=== PATIENT | female | born 1960 | race Caucasian/White ===

== ENCOUNTER 2018-07-06 19:11 | Inpatient (IN) | payer OTHER ==
[~2018-07-06] VITALS: Ht 165.1 cm; Wt 55.2 kg
[2018-07-06] MEDS ORDERED: PREMARIN 0.60.625 M1 PO (19:36)
[2018-07-06] MEDS ORDERED: SYNTHROID0.05 MG/TA PO (19:37)
[2018-07-06 20:10] LABS: BASO # 0.1 (0.0-0.2); BASO % 0.6 % (0.0-2.0); EOS # 0.1 (0.0-0.7); EOS % 0.4 % (0-4.0); GRAN # 10.3 (1.4-6.5); GRAN % 76.8 % (42.2-75.2); HEMATOCRIT 49.9 % (37.0-47.0); HEMOGLOBIN 16.9 g/dl (12.5-16.0); LYMPH # 1.9 (1.2-3.4); MEAN CELL VOLUME 94 fl (80.0-100.0); MEAN CORPUSCULAR HEMOGLOBIN 32 pg (27.0-31.0); MEAN CORPUSCULAR HGB CONC 34 g/dl (33.0-37.0); MEAN PLATELET VOLUME 8.8 fl (7.4-10.4); MONO % 7.1 % (1.7-9.3); PLATELET COUNT 679 K/mm3 (130-400); RED BLOOD COUNT 5.32 M/mm3 (4.10-5.30); REDCELL DISTRIBUTION WIDTH-CV 12.4 % (11.5-14.5)
[2018-07-06 20:21] LABS: ALBUMIN 4.4 gm/dL (3.5-5.0); BILIRUBIN,TOTAL 0.7 mg/dL (0.0-1.0); C-REACTIVE PROTEIN 0.8 mg/dL (0.0-0.9); CALCIUM 10.8 mg/dL (8.4-10.2); CREATININE, serum 0.61 mg/dL (0.52-1.25); MAGNESIUM 1.7 mg/dL (1.6-2.3); POTASSIUM 3.6 mmol/L (3.4-5.0)
[2018-07-06 22:26] VITALS: BP 114/73; PULSE 67
[2018-07-06] MEDS ORDERED: TUMS SMOOTHIES750 M1 PO (22:44)
[2018-07-06 23:55] VITALS: TEMP 97.4
[2018-07-07] VITALS (7 sets, daily range): BP systolic 92–137; BP diastolic 58–72; PULSE 60–75; TEMP 97.7–98.4
[2018-07-07 06:08] LABS: BASO # 0.1 (0.0-0.2); BASO % 0.6 % (0.0-2.0); EOS # 0.1 (0.0-0.7); EOS % 1.1 % (0-4.0); GRAN # 8.3 (1.4-6.5); GRAN % 69.8 % (42.2-75.2); LYMPH # 2.3 (1.2-3.4); LYMPH % 19.1 % (20.0-51.0); MEAN CELL VOLUME 93 fl (80.0-100.0); MEAN CORPUSCULAR HGB CONC 34 g/dl (33.0-37.0); MEAN PLATELET VOLUME 9.2 fl (7.4-10.4); MONO % 8.6 % (1.7-9.3); RED BLOOD COUNT 4.18 M/mm3 (4.10-5.30); REDCELL DISTRIBUTION WIDTH-CV 12.4 % (11.5-14.5)
[2018-07-07 06:17] LABS: CALCIUM 8.2 mg/dL (8.4-10.2); CREATININE, serum 0.52 mg/dL (0.52-1.25); POTASSIUM 4.4 mmol/L (3.4-5.0)
[2018-07-07 06:30] LABS: HEMOGLOBIN 13.2 g/dl (12.5-16.0); MEAN CORPUSCULAR HEMOGLOBIN 32 pg (27.0-31.0); PLATELET COUNT 512 K/mm3 (130-400)
[2018-07-07 08:55] LABS: MUCOUS Present /lpf; PH 5 (5-8); URINE APPEARANCE Clear; URINE BACTERIA None Seen /hpf; URINE BILIRUBIN Negative (NEGATIVE); URINE BLOOD 1+ (NEGATIVE); URINE COLOR Yellow; URINE GLUCOSE Negative (NEGATIVE); URINE KETONE 1+ (NEGATIVE); URINE LEUKOCYTE ESTERASE 1+ (NEGATIVE); URINE NITRATE Negative (NEGATIVE); URINE PROTEIN(semi-quant) Negative (NEGATIVE); URINE UROBILINOGEN Negative (NEGATIVE)
[2018-07-07 08:58] LABS: COLLECTION METHOD RANDOM VOIDED
[2018-07-08 04:22] VITALS: BP 102/56; PULSE 80; TEMP 98.6
[2018-07-08 07:13] VITALS: BP 117/66; PULSE 61; TEMP 98.5
[2018-07-08 07:27] LABS: BASO # 0.1 (0.0-0.2); BASO % 0.3 % (0.0-2.0); EOS # 0.1 (0.0-0.7); GRAN # 11.5 (1.4-6.5); GRAN % 78.8 % (42.2-75.2); HEMATOCRIT 38.2 % (37.0-47.0); HEMOGLOBIN 12.8 g/dl (12.5-16.0); LYMPH % 13.6 % (20.0-51.0); MEAN CELL VOLUME 94 fl (80.0-100.0); MEAN CORPUSCULAR HEMOGLOBIN 31 pg (27.0-31.0); MEAN CORPUSCULAR HGB CONC 34 g/dl (33.0-37.0); MEAN PLATELET VOLUME 9.4 fl (7.4-10.4); MONO # 0.8 (0.1-0.6); MONO % 5.7 % (1.7-9.3); PLATELET COUNT 481 K/mm3 (130-400); RED BLOOD COUNT 4.07 M/mm3 (4.10-5.30); REDCELL DISTRIBUTION WIDTH-CV 12.4 % (11.5-14.5)
[2018-07-08 07:39] LABS: ANION GAP 10 mmol/L (7-16); BLOOD UREA NITROGEN < 2 mg/dL (7-17); CALCIUM 7.4 mg/dL (8.4-10.2); CARBON DIOXIDE 17 mmol/L (22-30); CHLORIDE 112 mmol/L (98-107); CREATININE, serum 0.47 mg/dL (0.52-1.25); GLUCOSE 97 mg/dL (74-106); MAGNESIUM 1.7 mg/dL (1.6-2.3); POTASSIUM 3.2 mmol/L (3.4-5.0); SODIUM 139 mmol/L (137-145)
[2018-07-08 13:50] VITALS: BP 102/62; PULSE 68; TEMP 98.2
[2018-07-08 15:16] VITALS: BP 103/66; PULSE 61; TEMP 97.8
[2018-07-08 21:00] VITALS: BP 110/75; PULSE 67; TEMP 97.9
[2018-07-09] VITALS (12 sets, daily range): BP systolic 96–128; BP diastolic 61–76; PULSE 12–80; TEMP 97.8–98.3
[2018-07-09 06:58] LABS: ANION GAP 5 mmol/L (7-16); CALCIUM 7.6 mg/dL (8.4-10.2); CARBON DIOXIDE 21 mmol/L (22-30); CHLORIDE 110 mmol/L (98-107); CREATININE, serum 0.48 mg/dL (0.52-1.25); GLUCOSE 84 mg/dL (74-106); MAGNESIUM 1.8 mg/dL (1.6-2.3); POTASSIUM 3.5 mmol/L (3.4-5.0); SODIUM 136 mmol/L (137-145)
[2018-07-09 07:00] LABS: BLOOD UREA NITROGEN < 2 mg/dL (7-17)
[2018-07-09 09:50] LABS: BASO # 0.1 (0.0-0.2); BASO % 0.5 % (0.0-2.0); EOS # 0.2 (0.0-0.7); EOS % 1.9 % (0-4.0); GRAN # 9.6 (1.4-6.5); GRAN % 75.3 % (42.2-75.2); HEMOGLOBIN 12.2 g/dl (12.5-16.0); LYMPH # 1.8 (1.2-3.4); LYMPH % 14.2 % (20.0-51.0); MEAN CELL VOLUME 96 fl (80.0-100.0); MEAN CORPUSCULAR HEMOGLOBIN 32 pg (27.0-31.0); MEAN CORPUSCULAR HGB CONC 33 g/dl (33.0-37.0); MEAN PLATELET VOLUME 9.7 fl (7.4-10.4); MONO % 7.7 % (1.7-9.3); PLATELET COUNT 509 K/mm3 (130-400); RED BLOOD COUNT 3.83 M/mm3 (4.10-5.30); REDCELL DISTRIBUTION WIDTH-CV 12.5 % (11.5-14.5)
[2018-07-09 09:52] LABS: HEMATOCRIT 36.6 % (37.0-47.0)
[2018-07-10] VITALS (9 sets, daily range): BP systolic 95–105; BP diastolic 60–65; PULSE 79–90; TEMP 97.9–98.9
[2018-07-10 06:36] LABS: HEMATOCRIT 37.4 % (37.0-47.0); HEMOGLOBIN 12.6 g/dl (12.5-16.0); MEAN CELL VOLUME 94 fl (80.0-100.0); MEAN CORPUSCULAR HEMOGLOBIN 32 pg (27.0-31.0); MEAN CORPUSCULAR HGB CONC 34 g/dl (33.0-37.0); MEAN PLATELET VOLUME 9.7 fl (7.4-10.4); PLATELET COUNT 441 K/mm3 (130-400); RED BLOOD COUNT 3.99 M/mm3 (4.10-5.30); REDCELL DISTRIBUTION WIDTH-CV 12.4 % (11.5-14.5)
[2018-07-10 06:43] LABS: CALCIUM 7.9 mg/dL (8.4-10.2); CREATININE, serum 0.54 mg/dL (0.52-1.25); MAGNESIUM 1.6 mg/dL (1.6-2.3); POTASSIUM 3.4 mmol/L (3.4-5.0)
[2018-07-10 08:12] LABS: BAND 37 % (0-10); LYMPHOCYTE 3 % (20.0-51.0); NEUTROPHILS 58 % (42.0-75.2); PLATELET ESTIMATE INCREASED (NORMAL)
[2018-07-11] VITALS (11 sets, daily range): BP systolic 90–108; BP diastolic 55–69; PULSE 72–95; TEMP 97.6–98.6
[2018-07-11 06:17] LABS: BASO # 0.1 (0.0-0.2); BASO % 0.3 % (0.0-2.0); EOS # 0.1 (0.0-0.7); EOS % 0.4 % (0-4.0); GRAN % 86.4 % (42.2-75.2); HEMATOCRIT 38.3 % (37.0-47.0); HEMOGLOBIN 13.1 g/dl (12.5-16.0); LYMPH # 1.2 (1.2-3.4); LYMPH % 5.9 % (20.0-51.0); MEAN CELL VOLUME 95 fl (80.0-100.0); MEAN CORPUSCULAR HEMOGLOBIN 33 pg (27.0-31.0); MEAN CORPUSCULAR HGB CONC 34 g/dl (33.0-37.0); MEAN PLATELET VOLUME 9.7 fl (7.4-10.4); MONO # 1.4 (0.1-0.6); MONO % 6.5 % (1.7-9.3); PLATELET COUNT 489 K/mm3 (130-400); RED BLOOD COUNT 4.03 M/mm3 (4.10-5.30); REDCELL DISTRIBUTION WIDTH-CV 12.7 % (11.5-14.5)
[2018-07-11 06:34] LABS: CALCIUM 7.7 mg/dL (8.4-10.2); CREATININE, serum 1.07 mg/dL (0.52-1.25); MAGNESIUM 2.3 mg/dL (1.6-2.3); POTASSIUM 4.1 mmol/L (3.4-5.0)
[2018-07-11 23:30] LABS: CREATININE, serum 0.89 mg/dL (0.52-1.25); SODIUM 130 mmol/L (137-145)
[2018-07-12 00:17] VITALS: BP 99/52; PULSE 88; TEMP 98.2
[2018-07-12 00:18] VITALS: BP 99/52; PULSE 88
[2018-07-12 03:58] VITALS: BP 90/50; PULSE 86; TEMP 99.1
[2018-07-12 07:47] LABS: MEAN CELL VOLUME 96 fl (80.0-100.0); MEAN CORPUSCULAR HGB CONC 32 g/dl (33.0-37.0); MEAN PLATELET VOLUME 9.3 fl (7.4-10.4); REDCELL DISTRIBUTION WIDTH-CV 12.9 % (11.5-14.5)
[2018-07-12 07:48] LABS: HEMATOCRIT 28.8 % (37.0-47.0); HEMOGLOBIN 9.3 g/dl (12.5-16.0); MEAN CORPUSCULAR HEMOGLOBIN 31 pg (27.0-31.0); PLATELET COUNT 319 K/mm3 (130-400)
[2018-07-12 07:55] LABS: ALBUMIN 1.8 gm/dL (3.5-5.0); BILIRUBIN,TOTAL 0.2 mg/dL (0.0-1.0); CALCIUM 6.1 mg/dL (8.4-10.2); CREATININE, serum 0.91 mg/dL (0.52-1.25); MAGNESIUM 1.9 mg/dL (1.6-2.3); TOTAL PROTEIN 4.1 gm/dL (6.4-8.2)
[2018-07-12 08:00] VITALS: BP 90/58; PULSE 85
[2018-07-12 08:46] VITALS: BP 90/58; PULSE 85; TEMP 98.4
[2018-07-12 10:50] LABS: PLATELET ESTIMATE NORMAL (NORMAL)
[2018-07-12 11:03] LABS: BAND 12 % (0-10); LYMPHOCYTE 3 % (20.0-51.0); NEUTROPHILS 81 % (42.0-75.2)
[2018-07-12 12:21] VITALS: BP 91/60; PULSE 80; TEMP 98.4
[2018-07-13] VITALS (7 sets, daily range): BP systolic 93–101; BP diastolic 48–67; PULSE 64–84; TEMP 98.1–98.5
[2018-07-13 07:22] LABS: BASO % 0.3 % (0.0-2.0); EOS # 0.3 (0.0-0.7); GRAN # 10.3 (1.4-6.5); GRAN % 77.2 % (42.2-75.2); LYMPH # 1.2 (1.2-3.4); LYMPH % 8.9 % (20.0-51.0); MEAN CELL VOLUME 99 fl (80.0-100.0); MEAN CORPUSCULAR HGB CONC 32 g/dl (33.0-37.0); MEAN PLATELET VOLUME 9.7 fl (7.4-10.4); MONO # 1.5 (0.1-0.6); MONO % 11.1 % (1.7-9.3); PLATELET COUNT 326 K/mm3 (130-400); RED BLOOD COUNT 2.83 M/mm3 (4.10-5.30); REDCELL DISTRIBUTION WIDTH-CV 13.1 % (11.5-14.5)
[2018-07-13 07:33] LABS: HEMOGLOBIN 8.9 g/dl (12.5-16.0); MEAN CORPUSCULAR HEMOGLOBIN 31 pg (27.0-31.0)
[2018-07-13 07:36] LABS: CALCIUM 6.2 mg/dL (8.4-10.2); CREATININE, serum 0.81 mg/dL (0.52-1.25); MAGNESIUM 1.9 mg/dL (1.6-2.3); POTASSIUM 3.4 mmol/L (3.4-5.0)
[2018-07-14] VITALS (7 sets, daily range): BP systolic 99–109; BP diastolic 60–75; PULSE 68–85; TEMP 97.9–98.6
[2018-07-14 06:16] LABS: BASO % 0.3 % (0.0-2.0); EOS # 0.2 (0.0-0.7); EOS % 1.8 % (0-4.0); GRAN # 10.6 (1.4-6.5); GRAN % 77.6 % (42.2-75.2); HEMOGLOBIN 10.7 g/dl (12.5-16.0); LYMPH # 1.1 (1.2-3.4); LYMPH % 8.2 % (20.0-51.0); MEAN CELL VOLUME 97 fl (80.0-100.0); MEAN CORPUSCULAR HEMOGLOBIN 32 pg (27.0-31.0); MEAN CORPUSCULAR HGB CONC 33 g/dl (33.0-37.0); MEAN PLATELET VOLUME 9.7 fl (7.4-10.4); MONO # 1.6 (0.1-0.6); MONO % 11.4 % (1.7-9.3); PLATELET COUNT 383 K/mm3 (130-400); RED BLOOD COUNT 3.38 M/mm3 (4.10-5.30); REDCELL DISTRIBUTION WIDTH-CV 13.1 % (11.5-14.5)
[2018-07-14 06:21] LABS: HEMATOCRIT 32.8 % (37.0-47.0)
[2018-07-14 06:26] LABS: CALCIUM 9.3 mg/dL (8.4-10.2); CREATININE, serum 1.14 mg/dL (0.52-1.25); MAGNESIUM 2.4 mg/dL (1.6-2.3); POTASSIUM 4.5 mmol/L (3.4-5.0)
[2018-07-14 14:04] LABS: FOLATE (FOLIC ACID) 5.3 ng/mL (7.0-31.4)
[2018-07-15 05:00] VITALS: BP 97/72; PULSE 74; TEMP 98.2
[2018-07-15 06:22] LABS: BASO % 0.3 % (0.0-2.0); EOS # 0.2 (0.0-0.7); EOS % 1.3 % (0-4.0); GRAN # 10.9 (1.4-6.5); GRAN % 76.7 % (42.2-75.2); HEMOGLOBIN 11.5 g/dl (12.5-16.0); LYMPH # 1.6 (1.2-3.4); MEAN CELL VOLUME 97 fl (80.0-100.0); MEAN CORPUSCULAR HEMOGLOBIN 32 pg (27.0-31.0); MEAN CORPUSCULAR HGB CONC 33 g/dl (33.0-37.0); MEAN PLATELET VOLUME 9.7 fl (7.4-10.4); MONO # 1.4 (0.1-0.6); MONO % 10.1 % (1.7-9.3); PLATELET COUNT 397 K/mm3 (130-400); RED BLOOD COUNT 3.64 M/mm3 (4.10-5.30)
[2018-07-15 06:43] LABS: HEMATOCRIT 35.2 % (37.0-47.0)
[2018-07-15 06:45] LABS: CALCIUM 8.9 mg/dL (8.4-10.2); CREATININE, serum 1.4 mg/dL (0.52-1.25); MAGNESIUM 2.1 mg/dL (1.6-2.3); POTASSIUM 4.5 mmol/L (3.4-5.0)
[2018-07-15 07:52] VITALS: BP 100/69; PULSE 78; TEMP 98.3
[2018-07-15 11:58] VITALS: BP 112/70; PULSE 73; TEMP 98.1
[2018-07-15 15:28] VITALS: BP 108/67; PULSE 74; TEMP 98
[2018-07-15 21:51] VITALS: BP 122/67; PULSE 78; TEMP 98.3
[2018-07-16 00:15] VITALS: BP 101/66; PULSE 78; TEMP 99.2
[2018-07-16 04:50] VITALS: BP 107/66; PULSE 88; TEMP 98.4
[2018-07-16 06:17] LABS: HEMATOCRIT 34.8 % (37.0-47.0); HEMOGLOBIN 11.5 g/dl (12.5-16.0); MEAN CELL VOLUME 95 fl (80.0-100.0); MEAN CORPUSCULAR HEMOGLOBIN 31 pg (27.0-31.0); MEAN CORPUSCULAR HGB CONC 33 g/dl (33.0-37.0); MEAN PLATELET VOLUME 9.8 fl (7.4-10.4); PLATELET COUNT 417 K/mm3 (130-400); RED BLOOD COUNT 3.68 M/mm3 (4.10-5.30); REDCELL DISTRIBUTION WIDTH-CV 12.9 % (11.5-14.5)
[2018-07-16 06:29] LABS: CALCIUM 8.4 mg/dL (8.4-10.2); CREATININE, serum 1.43 mg/dL (0.52-1.25); POTASSIUM 4.1 mmol/L (3.4-5.0)
[2018-07-16 07:06] LABS: BAND 11 % (0-10); EOSINOPHIL 1 % (0-4); LYMPHOCYTE 16 % (20.0-51.0); NEUTROPHILS 65 % (42.0-75.2)
[2018-07-16 07:07] LABS: PLATELET ESTIMATE INCREASED (NORMAL)
[2018-07-16 08:00] VITALS: BP 101/67; PULSE 82; TEMP 98.2
[2018-07-16 11:00] VITALS: BP 98/59; PULSE 83; TEMP 99
[2018-07-16 12:38] LABS: BILIRUBIN,TOTAL 0.4 mg/dL (0.0-1.0); CALCIUM 8.6 mg/dL (8.4-10.2); CREATININE, serum 1.51 mg/dL (0.52-1.25); MAGNESIUM 1.8 mg/dL (1.6-2.3); PHOSPHOROUS 5.5 mg/dL (2.5-4.5); POTASSIUM 4.3 mmol/L (3.4-5.0); TOTAL PROTEIN 6.2 gm/dL (6.4-8.2)
[2018-07-16 16:00] VITALS: BP 99/55; PULSE 76; TEMP 98.4
[2018-07-17 00:36] VITALS: BP 107/68; PULSE 78; TEMP 98.8
[2018-07-17 04:00] VITALS: BP 106/65; PULSE 72; TEMP 98
[2018-07-17 06:30] LABS: CALCIUM 8.3 mg/dL (8.4-10.2); CREATININE, serum 1.34 mg/dL (0.52-1.25); MAGNESIUM 1.7 mg/dL (1.6-2.3); POTASSIUM 3.6 mmol/L (3.4-5.0)
[2018-07-17 07:59] VITALS: BP 108/59; PULSE 68; TEMP 98.4
[2018-07-17 09:50] LABS: HEMOGLOBIN 10.8 g/dl (12.5-16.0); MEAN CELL VOLUME 96 fl (80.0-100.0); MEAN CORPUSCULAR HEMOGLOBIN 31 pg (27.0-31.0); MEAN CORPUSCULAR HGB CONC 33 g/dl (33.0-37.0); PLATELET COUNT 404 K/mm3 (130-400); RED BLOOD COUNT 3.46 M/mm3 (4.10-5.30)
[2018-07-17 09:51] LABS: HEMATOCRIT 33.1 % (37.0-47.0)
[2018-07-17 10:08] LABS: BAND 21 % (0-10); EOSINOPHIL 1 % (0-4); LYMPHOCYTE 7 % (20.0-51.0); NEUTROPHILS 59 % (42.0-75.2); PLATELET ESTIMATE NORMAL (NORMAL)
[2018-07-17 11:42] VITALS: BP 99/63; PULSE 68; TEMP 98.3
[2018-07-17 18:02] VITALS: BP 107/67; PULSE 73; TEMP 98.1
[2018-07-17 20:37] VITALS: BP 118/71; PULSE 75; TEMP 98.3
[2018-07-18 00:04] VITALS: BP 94/43; PULSE 81; TEMP 98.3
[2018-07-18 01:36] LABS: 12 HR URINE TOTAL VOLUME 0.85 L
[2018-07-18 04:48] VITALS: BP 106/62; PULSE 70; TEMP 98.3
[2018-07-18 06:24] LABS: BASO % 0.2 % (0.0-2.0); EOS # 0.1 (0.0-0.7); EOS % 0.9 % (0-4.0); GRAN # 12.1 (1.4-6.5); GRAN % 79.1 % (42.2-75.2); LYMPH # 1.4 (1.2-3.4); LYMPH % 9.2 % (20.0-51.0); MEAN CELL VOLUME 97 fl (80.0-100.0); MEAN CORPUSCULAR HEMOGLOBIN 31 pg (27.0-31.0); MEAN CORPUSCULAR HGB CONC 32 g/dl (33.0-37.0); MEAN PLATELET VOLUME 9.6 fl (7.4-10.4); MONO # 1.4 (0.1-0.6); MONO % 9.2 % (1.7-9.3); PLATELET COUNT 406 K/mm3 (130-400); REDCELL DISTRIBUTION WIDTH-CV 12.8 % (11.5-14.5)
[2018-07-18 06:28] LABS: HEMATOCRIT 33.9 % (37.0-47.0)
[2018-07-18 06:40] LABS: CALCIUM 8.2 mg/dL (8.4-10.2); CREATININE, serum 1.22 mg/dL (0.52-1.25); MAGNESIUM 1.8 mg/dL (1.6-2.3); POTASSIUM 3.5 mmol/L (3.4-5.0)
[2018-07-18 09:39] VITALS: BP 105/66; PULSE 81; TEMP 98.2
[2018-07-18 15:37] VITALS: BP 108/66; PULSE 70; TEMP 98.1
[2018-07-18 20:02] VITALS: BP 104/66; PULSE 71; TEMP 98.6
[2018-07-19 00:41] VITALS: BP 103/68; PULSE 83; TEMP 98.2
[2018-07-19 03:41] VITALS: BP 101/66; PULSE 73; TEMP 98.2
[2018-07-19 07:30] VITALS: BP 108/65; PULSE 67; TEMP 98
[2018-07-19 07:47] LABS: BASO % 0.2 % (0.0-2.0); EOS # 0.2 (0.0-0.7); EOS % 1.3 % (0-4.0); GRAN # 11.9 (1.4-6.5); GRAN % 76.4 % (42.2-75.2); HEMOGLOBIN 10.5 g/dl (12.5-16.0); LYMPH # 1.6 (1.2-3.4); LYMPH % 10.5 % (20.0-51.0); MEAN CELL VOLUME 97 fl (80.0-100.0); MEAN CORPUSCULAR HEMOGLOBIN 31 pg (27.0-31.0); MEAN CORPUSCULAR HGB CONC 32 g/dl (33.0-37.0); MEAN PLATELET VOLUME 9.5 fl (7.4-10.4); MONO # 1.5 (0.1-0.6); MONO % 9.6 % (1.7-9.3); PLATELET COUNT 423 K/mm3 (130-400); RED BLOOD COUNT 3.34 M/mm3 (4.10-5.30); REDCELL DISTRIBUTION WIDTH-CV 12.8 % (11.5-14.5)
[2018-07-19 07:48] LABS: CALCIUM 7.9 mg/dL (8.4-10.2); CREATININE, serum 1.1 mg/dL (0.52-1.25); POTASSIUM 4.3 mmol/L (3.4-5.0)
[2018-07-19 07:53] LABS: HEMATOCRIT 32.4 % (37.0-47.0)
[2018-07-19 13:02] VITALS: BP 97/63; PULSE 93; TEMP 98.1
[2018-07-19 16:55] VITALS: BP 106/62; PULSE 71; TEMP 98.7
[2018-07-19 19:46] VITALS: BP 102/67; PULSE 72; TEMP 98.1
[2018-07-20 00:09] VITALS: BP 109/99; PULSE 76; TEMP 98.5
[2018-07-20 03:25] VITALS: BP 110/71; PULSE 69; TEMP 99.4
[2018-07-20 08:06] LABS: HEMOGLOBIN 10.2 g/dl (12.5-16.0); MEAN CELL VOLUME 96 fl (80.0-100.0); MEAN CORPUSCULAR HEMOGLOBIN 31 pg (27.0-31.0); MEAN CORPUSCULAR HGB CONC 32 g/dl (33.0-37.0); MEAN PLATELET VOLUME 9.5 fl (7.4-10.4); PLATELET COUNT 461 K/mm3 (130-400); RED BLOOD COUNT 3.31 M/mm3 (4.10-5.30); REDCELL DISTRIBUTION WIDTH-CV 12.7 % (11.5-14.5)
[2018-07-20 08:14] LABS: HEMATOCRIT 31.8 % (37.0-47.0)
[2018-07-20 08:16] LABS: CALCIUM 7.9 mg/dL (8.4-10.2); CREATININE, serum 1.08 mg/dL (0.52-1.25); MAGNESIUM 2.1 mg/dL (1.6-2.3); PHOSPHOROUS 3.9 mg/dL (2.5-4.5); POTASSIUM 4.2 mmol/L (3.4-5.0)
[2018-07-20 08:37] VITALS: BP 104/62; PULSE 72; TEMP 98
[2018-07-20 09:01] LABS: BAND 11 % (0-10); EOSINOPHIL 1 % (0-4); HYPOCHROMIA 1+; LYMPHOCYTE 17 % (20.0-51.0); NEUTROPHILS 66 % (42.0-75.2); PLATELET ESTIMATE INCREASED (NORMAL)
[2018-07-20 11:27] VITALS: BP 108/71; PULSE 76; TEMP 98.1
[2018-07-20 16:55] VITALS: BP 109/75; PULSE 75; TEMP 98.1
[2018-07-20 19:35] VITALS: BP 122/77; PULSE 79; TEMP 98.1
[2018-07-21 04:22] VITALS: BP 99/57; PULSE 81; TEMP 99.6
[2018-07-21 06:27] LABS: CALCIUM 8.4 mg/dL (8.4-10.2); CREATININE, serum 1.06 mg/dL (0.52-1.25); MAGNESIUM 2.2 mg/dL (1.6-2.3); PHOSPHOROUS 3.8 mg/dL (2.5-4.5); POTASSIUM 4.5 mmol/L (3.4-5.0)
[2018-07-21 08:32] VITALS: BP 114/73; PULSE 90; TEMP 99.6
[2018-07-21 12:31] VITALS: BP 108/70; PULSE 80; TEMP 98.4
[2018-07-21 16:09] VITALS: BP 113/74; PULSE 74; TEMP 98.8
[2018-07-21 19:21] LABS: 12 HR URINE TOTAL VOLUME 0.95 L
[2018-07-21 19:53] VITALS: BP 117/66; PULSE 84; TEMP 97.8
[2018-07-22] VITALS (7 sets, daily range): BP systolic 99–119; BP diastolic 67–85; PULSE 69–102; TEMP 98.1–99.7
[2018-07-22 06:10] LABS: BASO # 0.1 (0.0-0.2); BASO % 0.4 % (0.0-2.0); EOS # 0.4 (0.0-0.7); GRAN # 15.4 (1.4-6.5); LYMPH # 2.2 (1.2-3.4); MEAN CELL VOLUME 94 fl (80.0-100.0); MEAN CORPUSCULAR HGB CONC 33 g/dl (33.0-37.0); MEAN PLATELET VOLUME 9.6 fl (7.4-10.4); MONO # 1.6 (0.1-0.6); MONO % 7.8 % (1.7-9.3); RED BLOOD COUNT 3.89 M/mm3 (4.10-5.30)
[2018-07-22 06:12] LABS: HEMOGLOBIN 12.2 g/dl (12.5-16.0); MEAN CORPUSCULAR HEMOGLOBIN 31 pg (27.0-31.0)
[2018-07-22 06:13] LABS: HEMATOCRIT 36.5 % (37.0-47.0); PLATELET COUNT 697 K/mm3 (130-400)
[2018-07-22 06:17] LABS: CALCIUM 9.1 mg/dL (8.4-10.2); CREATININE, serum 1.17 mg/dL (0.52-1.25)
[2018-07-22] MEDS ORDERED: FOLIC ACID 11 MG/TA1 PO (10:31)
[2018-07-22] MEDS ORDERED: MASON NATURAL2000 IU PO (10:31)
[2018-07-22] MEDS ORDERED: ROXICODONE 55 MG/TAB PO (10:32)
[2018-07-22] MEDS ORDERED: FENTANYL 12MCG TD (10:32)
[2018-07-23] VITALS (7 sets, daily range): BP systolic 82–110; BP diastolic 53–76; PULSE 91–113; TEMP 97.6–98.5
[2018-07-23 06:43] LABS: HEMATOCRIT 37.7 % (37.0-47.0); HEMOGLOBIN 12.2 g/dl (12.5-16.0); MEAN CELL VOLUME 95 fl (80.0-100.0); MEAN CORPUSCULAR HEMOGLOBIN 31 pg (27.0-31.0); MEAN CORPUSCULAR HGB CONC 32 g/dl (33.0-37.0); MEAN PLATELET VOLUME 9.6 fl (7.4-10.4); RED BLOOD COUNT 3.97 M/mm3 (4.10-5.30); REDCELL DISTRIBUTION WIDTH-CV 12.9 % (11.5-14.5)
[2018-07-23 06:55] LABS: PLATELET COUNT 827 K/mm3 (130-400)
[2018-07-23 06:57] LABS: CALCIUM 9.3 mg/dL (8.4-10.2); CREATININE, serum 1.29 mg/dL (0.52-1.25); MAGNESIUM 2.1 mg/dL (1.6-2.3); PHOSPHOROUS 5.3 mg/dL (2.5-4.5)
[2018-07-23 07:32] LABS: BAND 7 % (0-10); EOSINOPHIL 1 % (0-4); LYMPHOCYTE 16 % (20.0-51.0); NEUTROPHILS 69 % (42.0-75.2); PLATELET ESTIMATE INCREASED (NORMAL); STOMATOCYTE 1+; TOXIC GRANULATION PRESENT
[2018-07-23 12:41] LABS: PH 7 (5-8); SQUAMOUS EPITHELIAL 0-2 /hpf; URINE APPEARANCE Clear; URINE BACTERIA None Seen /hpf; URINE BILIRUBIN Negative (NEGATIVE); URINE BLOOD Negative (NEGATIVE); URINE COLOR Yellow; URINE GLUCOSE Negative (NEGATIVE); URINE KETONE Negative (NEGATIVE); URINE LEUKOCYTE ESTERASE Trace (NEGATIVE); URINE NITRATE Negative (NEGATIVE); URINE PROTEIN(semi-quant) Negative (NEGATIVE); URINE RBC 0-2 /hpf; URINE UROBILINOGEN Negative (NEGATIVE)
[2018-07-23 12:47] LABS: COLLECTION METHOD CLEAN CATCH
[2018-07-24] VITALS (17 sets, daily range): BP systolic 98–135; BP diastolic 57–95; PULSE 83–95; TEMP 97.8–99.2
[2018-07-24 06:38] LABS: MEAN CELL VOLUME 96 fl (80.0-100.0); MEAN CORPUSCULAR HGB CONC 32 g/dl (33.0-37.0); MEAN PLATELET VOLUME 9.6 fl (7.4-10.4); RED BLOOD COUNT 3.18 M/mm3 (4.10-5.30); REDCELL DISTRIBUTION WIDTH-CV 12.8 % (11.5-14.5)
[2018-07-24 06:41] LABS: PROTHROMBIN TIME 11.9 SECONDS (9.7-12.8)
[2018-07-24 06:44] LABS: HEMATOCRIT 30.5 % (37.0-47.0); HEMOGLOBIN 9.8 g/dl (12.5-16.0); MEAN CORPUSCULAR HEMOGLOBIN 31 pg (27.0-31.0)
[2018-07-24 06:45] LABS: PLATELET COUNT 666 K/mm3 (130-400)
[2018-07-24 07:07] LABS: CALCIUM 8.2 mg/dL (8.4-10.2); CREATININE, serum 1.06 mg/dL (0.52-1.25)
[2018-07-24 08:02] LABS: BAND 10 % (0-10); EOSINOPHIL 2 % (0-4); HYPOCHROMIA 1+; LYMPHOCYTE 18 % (20.0-51.0); NEUTROPHILS 62 % (42.0-75.2); PLATELET ESTIMATE INCREASED (NORMAL)
[2018-07-25 00:36] VITALS: BP 109/61; PULSE 87; TEMP 99.1
[2018-07-25 03:59] VITALS: BP 107/67; PULSE 63; TEMP 98.6; TEMP 99.1
[2018-07-25 05:38] LABS: HEMATOCRIT 29.7 % (37.0-47.0); HEMOGLOBIN 9.8 g/dl (12.5-16.0); MEAN CELL VOLUME 95 fl (80.0-100.0); MEAN CORPUSCULAR HEMOGLOBIN 31 pg (27.0-31.0); MEAN CORPUSCULAR HGB CONC 33 g/dl (33.0-37.0); PLATELET COUNT 643 K/mm3 (130-400); RED BLOOD COUNT 3.12 M/mm3 (4.10-5.30); REDCELL DISTRIBUTION WIDTH-CV 12.7 % (11.5-14.5)
[2018-07-25 05:42] LABS: ALBUMIN 3.1 gm/dL (3.5-5.0); BILIRUBIN,TOTAL 0.2 mg/dL (0.0-1.0); CALCIUM 8.6 mg/dL (8.4-10.2); CREATININE, serum 1.08 mg/dL (0.52-1.25); MAGNESIUM 1.8 mg/dL (1.6-2.3); PHOSPHOROUS 3.9 mg/dL (2.5-4.5); TOTAL PROTEIN 6.7 gm/dL (6.4-8.2)
[2018-07-25 06:13] LABS: BAND 2 % (0-10); EOSINOPHIL 3 % (0-4); LYMPHOCYTE 19 % (20.0-51.0); NEUTROPHILS 65 % (42.0-75.2)
[2018-07-25 06:14] LABS: PLATELET ESTIMATE INCREASED (NORMAL)
[2018-07-25 06:15] LABS: HYPOCHROMIA 1+
[2018-07-25 07:50] VITALS: BP 101/73; PULSE 74; TEMP 98
[2018-07-25] MEDS ORDERED: CEPHALEXIN500 M1 PO (10:34)
[2018-07-25 12:00] VITALS: BP 101/58; PULSE 80; TEMP 98
== END 2018-07-25 16:26 | disposition home or self-care (01) | DRG 854 ==
LOC: COL.ER 19:11 → MEDICAL 21:44 → SURG 07-09 15:56
PROVIDERS: Emergency Medicine; Family Medicine; Hospitalist; Internal Medicine; Nurse Practitioner Family; Physician Assistant; Surgery; Urology
PROC: 0DJ08ZZ Inspection of Upper Intestinal Tract, Via Natural or Artificial Opening Endoscopic (ICD-10-PCS; 2018-07-08)
PROC: 0DJD8ZZ Inspection of Lower Intestinal Tract, Via Natural or Artificial Opening Endoscopic (ICD-10-PCS; 2018-07-08)
PROC: 8E0W4CZ Robotic Assisted Procedure of Trunk Region, Percutaneous Endoscopic Approach (ICD-10-PCS; 2018-07-09)
PROC: 0DJD8ZZ Inspection of Lower Intestinal Tract, Via Natural or Artificial Opening Endoscopic (ICD-10-PCS; 2018-07-09)
PROC: 0TJB8ZZ Inspection of Bladder, Via Natural or Artificial Opening Endoscopic (ICD-10-PCS; 2018-07-09)
PROC: 0DTN4ZZ Resection of Sigmoid Colon, Percutaneous Endoscopic Approach (ICD-10-PCS; principal; 2018-07-09 15:30)
PROC: 0D1B4Z4 Bypass Ileum to Cutaneous, Percutaneous Endoscopic Approach (ICD-10-PCS; 2018-07-09 15:30)
PROC: 0W9J30Z Drainage of Pelvic Cavity with Drainage Device, Percutaneous Approach (ICD-10-PCS; 2018-07-24)
DX: A41.9 Sepsis, unspecified organism (principal); K57.20 Diverticulitis of large intestine with perforation and abscess without bleeding; N17.9 Acute kidney failure, unspecified; E44.0 Moderate protein-calorie malnutrition; E87.2 Acidosis; E87.1 Hypo-osmolality and hyponatremia; K56.51 Intestinal adhesions [bands], with partial obstruction; E86.0 Dehydration; E87.6 Hypokalemia; Z85.43 Personal history of malignant neoplasm of ovary; Z85.41 Personal history of malignant neoplasm of cervix uteri; E83.42 Hypomagnesemia; D64.9 Anemia, unspecified; E83.51 Hypocalcemia; T81.82XA Emphysema (subcutaneous) resulting from a procedure, initial encounter
CPT/HCPCS: 99222-AI; 99231-AI; 99232-AI; 99233-AI; 99239; A4314; A9284; C1729; C1751; C1894; C9113; G0378; J0610; J0744; J1100; J1170; J1650; J1885; J2060; J2250; J2270; J2405; J2550; J2704; J2765; J3010; J3411; J3475; J3480; J7030; J7040; J7131; Q9967

== ENCOUNTER 2018-07-27 12:09 | Inpatient (IN) | payer MEDICARE, OTHER ==
[~2018-07-27] VITALS: Ht 165.1 cm; Wt 73.5 kg
[~2018-07-27 12:09] MED LIST: CEPHALEXIN500 M1 PO; FENTANYL 12MCG TD; FOLIC ACID 11 MG/TA1 PO; MASON NATURAL2000 IU PO; PREMARIN 0.60.625 M1 PO; ROXICODONE 55 MG/TAB PO; SYNTHROID0.05 MG/TA PO; TUMS SMOOTHIES750 M1 PO
[2018-07-27] MEDS ORDERED: ZOFRAN ODT4 MG PO (12:48)
[2018-07-27 12:53] LABS: BASO # 0.1 (0.0-0.2); BASO % 0.6 % (0.0-2.0); EOS # 0.1 (0.0-0.7); EOS % 0.7 % (0-4.0); GRAN # 16.9 (1.4-6.5); GRAN % 86.3 % (42.2-75.2); HEMATOCRIT 38.4 % (37.0-47.0); LYMPH # 1.2 (1.2-3.4); LYMPH % 6.3 % (20.0-51.0); MEAN CELL VOLUME 92 fl (80.0-100.0); MEAN CORPUSCULAR HGB CONC 34 g/dl (33.0-37.0); MEAN PLATELET VOLUME 9.1 fl (7.4-10.4); MONO % 5.2 % (1.7-9.3); RED BLOOD COUNT 4.18 M/mm3 (4.10-5.30); REDCELL DISTRIBUTION WIDTH-CV 12.6 % (11.5-14.5)
[2018-07-27 12:54] LABS: MEAN CORPUSCULAR HEMOGLOBIN 31 pg (27.0-31.0)
[2018-07-27 12:55] LABS: PLATELET COUNT 771 K/mm3 (130-400)
[2018-07-27 12:57] LABS: ALBUMIN 4.3 gm/dL (3.5-5.0); BILIRUBIN,TOTAL 0.5 mg/dL (0.0-1.0); C-REACTIVE PROTEIN 3.9 mg/dL (0.0-0.9); CALCIUM 10.6 mg/dL (8.4-10.2); CREATININE, serum 1.69 mg/dL (0.52-1.25); POTASSIUM 4.5 mmol/L (3.4-5.0); TOTAL PROTEIN 9.6 gm/dL (6.4-8.2)
[2018-07-27 15:10] VITALS: BP 106/68; PULSE 85; TEMP 98
[2018-07-27 16:50] LABS: MAGNESIUM 1.8 mg/dL (1.6-2.3); PHOSPHOROUS 7.3 mg/dL (2.5-4.5)
[2018-07-27 20:00] VITALS: BP 98/63; PULSE 85; TEMP 98.2
[2018-07-27 22:06] LABS: COLLECTION METHOD CLEAN CATCH
[2018-07-27 22:17] LABS: MUCOUS Present /lpf; PH 5 (5-8); URINE APPEARANCE Hazy; URINE BACTERIA None Seen /hpf; URINE BILIRUBIN Negative (NEGATIVE); URINE BLOOD Negative (NEGATIVE); URINE COLOR Yellow; URINE GLUCOSE Negative (NEGATIVE); URINE KETONE Negative (NEGATIVE); URINE LEUKOCYTE ESTERASE Negative (NEGATIVE); URINE NITRATE Negative (NEGATIVE); URINE PROTEIN(semi-quant) Negative (NEGATIVE); URINE RBC 0-2 /hpf; URINE UROBILINOGEN Negative (NEGATIVE)
[2018-07-28 04:15] VITALS: BP 101/73; PULSE 73; TEMP 98
[2018-07-28 07:00] LABS: ALBUMIN 2.9 gm/dL (3.5-5.0); BILIRUBIN,TOTAL 0.2 mg/dL (0.0-1.0); CALCIUM 8.3 mg/dL (8.4-10.2); CREATININE, serum 1.25 mg/dL (0.52-1.25); POTASSIUM 3.3 mmol/L (3.4-5.0); TOTAL PROTEIN 6.3 gm/dL (6.4-8.2)
[2018-07-28 07:28] LABS: HEMATOCRIT 26.7 % (37.0-47.0); MEAN CELL VOLUME 95 fl (80.0-100.0); MEAN CORPUSCULAR HEMOGLOBIN 31 pg (27.0-31.0); MEAN CORPUSCULAR HGB CONC 33 g/dl (33.0-37.0); MEAN PLATELET VOLUME 9.2 fl (7.4-10.4); PLATELET COUNT 510 K/mm3 (130-400); RED BLOOD COUNT 2.82 M/mm3 (4.10-5.30); REDCELL DISTRIBUTION WIDTH-CV 12.7 % (11.5-14.5)
[2018-07-28 07:32] LABS: HEMOGLOBIN 8.8 g/dl (12.5-16.0)
[2018-07-28 08:24] VITALS: BP 104/66; PULSE 76; TEMP 98.1
[2018-07-28 11:41] LABS: BAND 11 % (0-10); BASOPHIL 1 % (0-2); EOSINOPHIL 1 % (0-4); LYMPHOCYTE 18 % (20.0-51.0); NEUTROPHILS 67 % (42.0-75.2)
[2018-07-28 11:42] LABS: PLATELET ESTIMATE INCREASED (NORMAL)
[2018-07-28 12:30] VITALS: BP 108/55; PULSE 72; TEMP 97.9
[2018-07-28 16:24] VITALS: BP 102/62; PULSE 73; TEMP 97.9
[2018-07-29 03:41] VITALS: BP 92/52; PULSE 77; TEMP 99.1
[2018-07-29 07:45] VITALS: BP 113/66; PULSE 77; TEMP 98.6
[2018-07-29 08:30] LABS: ALBUMIN 2.8 gm/dL (3.5-5.0); BASO # 0.1 (0.0-0.2); BILIRUBIN,TOTAL 0.1 mg/dL (0.0-1.0); CALCIUM 8.4 mg/dL (8.4-10.2); CREATININE, serum 1.02 mg/dL (0.52-1.25); EOS # 0.5 (0.0-0.7); EOS % 4.9 % (0-4.0); GRAN # 5.9 (1.4-6.5); GRAN % 63.8 % (42.2-75.2); LYMPH # 1.9 (1.2-3.4); LYMPH % 20.8 % (20.0-51.0); MEAN CELL VOLUME 94 fl (80.0-100.0); MEAN CORPUSCULAR HGB CONC 33 g/dl (33.0-37.0); MEAN PLATELET VOLUME 9.1 fl (7.4-10.4); MONO # 0.8 (0.1-0.6); MONO % 9.1 % (1.7-9.3); PLATELET COUNT 482 K/mm3 (130-400); POTASSIUM 3.8 mmol/L (3.4-5.0); RED BLOOD COUNT 2.85 M/mm3 (4.10-5.30); REDCELL DISTRIBUTION WIDTH-CV 12.7 % (11.5-14.5); TOTAL PROTEIN 6.1 gm/dL (6.4-8.2)
[2018-07-29 08:47] LABS: HEMATOCRIT 26.7 % (37.0-47.0); MEAN CORPUSCULAR HEMOGLOBIN 31 pg (27.0-31.0)
[2018-07-29 08:49] LABS: HEMOGLOBIN 8.8 g/dl (12.5-16.0)
[2018-07-29 11:24] VITALS: BP 119/64; PULSE 79; TEMP 97.5
[2018-07-29 16:00] VITALS: BP 113/65; PULSE 79; TEMP 98.7
[2018-07-29 21:45] VITALS: BP 112/60; PULSE 77; TEMP 97.5
[2018-07-30 00:58] VITALS: BP 112/63; PULSE 78; TEMP 98.4
[2018-07-30 06:22] LABS: BASO # 0.1 (0.0-0.2); BASO % 0.8 % (0.0-2.0); EOS # 0.5 (0.0-0.7); EOS % 5.8 % (0-4.0); GRAN # 5.3 (1.4-6.5); GRAN % 60.6 % (42.2-75.2); LYMPH % 22.6 % (20.0-51.0); MEAN CELL VOLUME 93 fl (80.0-100.0); MEAN CORPUSCULAR HGB CONC 33 g/dl (33.0-37.0); MONO # 0.9 (0.1-0.6); MONO % 9.7 % (1.7-9.3); PLATELET COUNT 439 K/mm3 (130-400); RED BLOOD COUNT 2.87 M/mm3 (4.10-5.30); REDCELL DISTRIBUTION WIDTH-CV 12.6 % (11.5-14.5)
[2018-07-30 06:32] LABS: CALCIUM 8.3 mg/dL (8.4-10.2); CREATININE, serum 0.84 mg/dL (0.52-1.25); POTASSIUM 3.2 mmol/L (3.4-5.0)
[2018-07-30 06:35] VITALS: BP 114/75; PULSE 71; TEMP 98.6
[2018-07-30 06:41] LABS: HEMATOCRIT 26.8 % (37.0-47.0); HEMOGLOBIN 8.9 g/dl (12.5-16.0); MEAN CORPUSCULAR HEMOGLOBIN 31 pg (27.0-31.0)
[2018-07-30 07:30] VITALS: BP 121/66; PULSE 72; TEMP 98.2
[2018-07-30 11:00] VITALS: BP 117/67; PULSE 74; TEMP 98.6
[2018-07-30 16:52] VITALS: BP 111/68; PULSE 90; TEMP 98.2
[2018-07-30 20:47] VITALS: BP 120/65; PULSE 75; TEMP 98.5
[2018-07-31] VITALS: BP 110/60; PULSE 74; TEMP 98.5
[2018-07-31 05:14] VITALS: BP 116/65; PULSE 66; TEMP 98.5
[2018-07-31 06:17] LABS: BASO # 0.1 (0.0-0.2); BASO % 0.6 % (0.0-2.0); EOS # 0.6 (0.0-0.7); EOS % 6.7 % (0-4.0); GRAN % 57.7 % (42.2-75.2); LYMPH # 2.2 (1.2-3.4); LYMPH % 25.2 % (20.0-51.0); MEAN CELL VOLUME 93 fl (80.0-100.0); MEAN CORPUSCULAR HGB CONC 34 g/dl (33.0-37.0); MEAN PLATELET VOLUME 9.1 fl (7.4-10.4); MONO # 0.8 (0.1-0.6); MONO % 9.5 % (1.7-9.3); PLATELET COUNT 448 K/mm3 (130-400); RED BLOOD COUNT 2.88 M/mm3 (4.10-5.30); REDCELL DISTRIBUTION WIDTH-CV 12.6 % (11.5-14.5)
[2018-07-31 06:28] LABS: ALBUMIN 3.1 gm/dL (3.5-5.0); BILIRUBIN,TOTAL 0.1 mg/dL (0.0-1.0); CALCIUM 8.9 mg/dL (8.4-10.2); CREATININE, serum 0.82 mg/dL (0.52-1.25); TOTAL PROTEIN 6.5 gm/dL (6.4-8.2)
[2018-07-31 06:30] LABS: HEMATOCRIT 26.7 % (37.0-47.0); MEAN CORPUSCULAR HEMOGLOBIN 31 pg (27.0-31.0)
[2018-07-31 07:39] VITALS: BP 108/62; PULSE 68; TEMP 98.9
[2018-07-31 11:54] VITALS: BP 112/65; PULSE 85; TEMP 98.6
[2018-07-31 16:06] VITALS: BP 110/58; PULSE 73; TEMP 98.5
[2018-07-31 19:40] VITALS: BP 119/76; PULSE 76; TEMP 98.6
[2018-08-01 00:08] VITALS: BP 107/58; PULSE 78; TEMP 98.3
[2018-08-01 03:52] VITALS: BP 116/68; PULSE 73; TEMP 98.4
[2018-08-01 07:53] VITALS: BP 118/72; PULSE 71; TEMP 98.2
[2018-08-01 08:16] LABS: BASO # 0.1 (0.0-0.2); BASO % 0.8 % (0.0-2.0); EOS # 0.6 (0.0-0.7); EOS % 6.4 % (0-4.0); GRAN # 5.3 (1.4-6.5); GRAN % 60.4 % (42.2-75.2); HEMOGLOBIN 10.2 g/dl (12.5-16.0); LYMPH % 22.5 % (20.0-51.0); MEAN CELL VOLUME 92 fl (80.0-100.0); MEAN CORPUSCULAR HEMOGLOBIN 31 pg (27.0-31.0); MEAN CORPUSCULAR HGB CONC 34 g/dl (33.0-37.0); MEAN PLATELET VOLUME 8.8 fl (7.4-10.4); MONO # 0.8 (0.1-0.6); MONO % 9.4 % (1.7-9.3); PLATELET COUNT 414 K/mm3 (130-400); RED BLOOD COUNT 3.25 M/mm3 (4.10-5.30); REDCELL DISTRIBUTION WIDTH-CV 12.6 % (11.5-14.5)
[2018-08-01 08:19] LABS: HEMATOCRIT 29.8 % (37.0-47.0)
[2018-08-01 08:35] LABS: CALCIUM 9.4 mg/dL (8.4-10.2); CREATININE, serum 0.8 mg/dL (0.52-1.25); MAGNESIUM 1.3 mg/dL (1.6-2.3)
[2018-08-01 11:29] VITALS: BP 110/69; PULSE 63; TEMP 98.4
[2018-08-01 15:39] VITALS: BP 110/72; PULSE 79; TEMP 98.1
[2018-08-01 19:57] VITALS: BP 111/67; PULSE 77; TEMP 98.7
[2018-08-02 03:49] VITALS: BP 118/66; PULSE 62; TEMP 98.3
[2018-08-02 07:45] VITALS: BP 112/63; PULSE 63; TEMP 98.3
[2018-08-02 12:39] VITALS: BP 109/67; PULSE 102; TEMP 98.3
[2018-08-02 17:21] VITALS: BP 110/68; PULSE 103; TEMP 98.4
[2018-08-02 19:15] VITALS: BP 107/69; PULSE 76; TEMP 98.4
[2018-08-03 04:40] VITALS: BP 109/73; PULSE 67; TEMP 98.3
[2018-08-03 08:41] VITALS: BP 111/64; PULSE 68; TEMP 97.7
[2018-08-03 12:56] VITALS: BP 93/68; PULSE 79; TEMP 97.8
[2018-08-03 16:13] VITALS: BP 107/65; PULSE 77; TEMP 98.8
[2018-08-03 20:00] VITALS: BP 95/68; PULSE 77; TEMP 97.7
[2018-08-04 04:00] VITALS: BP 141/67; PULSE 78; TEMP 98.2
[2018-08-04 06:38] LABS: BASO # 0.1 (0.0-0.2); BASO % 0.7 % (0.0-2.0); EOS # 0.4 (0.0-0.7); GRAN # 5.1 (1.4-6.5); GRAN % 57.7 % (42.2-75.2); HEMOGLOBIN 10.5 g/dl (12.5-16.0); LYMPH # 2.2 (1.2-3.4); LYMPH % 24.9 % (20.0-51.0); MEAN CELL VOLUME 91 fl (80.0-100.0); MEAN CORPUSCULAR HEMOGLOBIN 31 pg (27.0-31.0); MEAN CORPUSCULAR HGB CONC 34 g/dl (33.0-37.0); MEAN PLATELET VOLUME 9.3 fl (7.4-10.4); MONO % 11.2 % (1.7-9.3); PLATELET COUNT 374 K/mm3 (130-400); RED BLOOD COUNT 3.41 M/mm3 (4.10-5.30); REDCELL DISTRIBUTION WIDTH-CV 12.5 % (11.5-14.5)
[2018-08-04 06:43] LABS: HEMATOCRIT 31.1 % (37.0-47.0)
[2018-08-04 06:54] LABS: CALCIUM 9.7 mg/dL (8.4-10.2); CREATININE, serum 0.93 mg/dL (0.52-1.25); POTASSIUM 4.2 mmol/L (3.4-5.0)
[2018-08-04 07:38] VITALS: BP 109/61; PULSE 76; TEMP 98.1
[2018-08-04 12:49] VITALS: BP 110/76; PULSE 74; TEMP 97.9
[2018-08-04 15:51] VITALS: BP 105/68; PULSE 85; TEMP 98.3
[2018-08-04 20:00] VITALS: BP 114/71; PULSE 87; TEMP 98.2
[2018-08-05 04:13] VITALS: BP 106/57; PULSE 72; TEMP 98.3
[2018-08-05 08:23] VITALS: BP 115/77; PULSE 81; TEMP 97.7
[2018-08-05 12:05] VITALS: BP 97/61; PULSE 71; TEMP 98.6
[2018-08-05 15:22] LABS: BASO # 0.1 (0.0-0.2); BASO % 0.6 % (0.0-2.0); EOS # 0.3 (0.0-0.7); EOS % 3.2 % (0-4.0); GRAN # 5.2 (1.4-6.5); GRAN % 62.8 % (42.2-75.2); LYMPH % 24.3 % (20.0-51.0); MEAN CELL VOLUME 92 fl (80.0-100.0); MEAN CORPUSCULAR HGB CONC 33 g/dl (33.0-37.0); MEAN PLATELET VOLUME 9.2 fl (7.4-10.4); MONO # 0.7 (0.1-0.6); MONO % 8.7 % (1.7-9.3); PLATELET COUNT 323 K/mm3 (130-400); RED BLOOD COUNT 3.18 M/mm3 (4.10-5.30); REDCELL DISTRIBUTION WIDTH-CV 12.7 % (11.5-14.5)
[2018-08-05 15:23] LABS: HEMATOCRIT 29.3 % (37.0-47.0); HEMOGLOBIN 9.7 g/dl (12.5-16.0); MEAN CORPUSCULAR HEMOGLOBIN 31 pg (27.0-31.0)
[2018-08-05 15:30] LABS: CALCIUM 8.9 mg/dL (8.4-10.2); CREATININE, serum 0.83 mg/dL (0.52-1.25); POTASSIUM 3.8 mmol/L (3.4-5.0)
[2018-08-05 16:27] VITALS: BP 106/62; PULSE 71; TEMP 98.1
[2018-08-06 05:56] VITALS: BP 109/67; PULSE 74; TEMP 97.8
[2018-08-06 07:44] VITALS: BP 106/66; PULSE 73; TEMP 98.5
[2018-08-06 11:38] VITALS: BP 107/64; PULSE 79; TEMP 98
[2018-08-06 16:17] VITALS: BP 94/64; PULSE 66; TEMP 98.2
[2018-08-06 20:57] VITALS: BP 99/67; PULSE 74; TEMP 98.4
[2018-08-07 01:08] VITALS: BP 105/64; PULSE 56; TEMP 98.4
[2018-08-07 04:37] VITALS: BP 113/74; PULSE 70; TEMP 98.3
[2018-08-07 07:33] VITALS: BP 111/74; PULSE 70; TEMP 98.7
[2018-08-07 12:27] VITALS: BP 105/66; PULSE 86; TEMP 98.1
[2018-08-07 16:55] VITALS: BP 104/73; PULSE 76; TEMP 98.9
[2018-08-07 19:36] VITALS: BP 104/67; PULSE 76; TEMP 98.9
[2018-08-08] VITALS (10 sets, daily range): BP systolic 88–106; BP diastolic 55–66; PULSE 66–80; TEMP 98.2–98.6
[2018-08-09 00:24] VITALS: BP 117/62; PULSE 80; TEMP 98
[2018-08-09 03:34] VITALS: BP 101/52; PULSE 78; TEMP 98.8
[2018-08-09 05:58] LABS: BASO % 0.4 % (0.0-2.0); EOS # 0.1 (0.0-0.7); EOS % 1.3 % (0-4.0); GRAN # 5.2 (1.4-6.5); GRAN % 57.8 % (42.2-75.2); LYMPH # 2.6 (1.2-3.4); LYMPH % 28.8 % (20.0-51.0); MEAN CELL VOLUME 93 fl (80.0-100.0); MEAN CORPUSCULAR HGB CONC 33 g/dl (33.0-37.0); MEAN PLATELET VOLUME 9.5 fl (7.4-10.4); MONO % 11.4 % (1.7-9.3); PLATELET COUNT 297 K/mm3 (130-400); REDCELL DISTRIBUTION WIDTH-CV 12.7 % (11.5-14.5)
[2018-08-09 06:12] LABS: ALBUMIN 2.9 gm/dL (3.5-5.0); BILIRUBIN,TOTAL 0.2 mg/dL (0.0-1.0); CALCIUM 8.4 mg/dL (8.4-10.2); CREATININE, serum 0.93 mg/dL (0.52-1.25); HEMATOCRIT 25.2 % (37.0-47.0); HEMOGLOBIN 8.3 g/dl (12.5-16.0); MEAN CORPUSCULAR HEMOGLOBIN 31 pg (27.0-31.0); POTASSIUM 3.4 mmol/L (3.4-5.0)
[2018-08-09 07:25] VITALS: BP 99/57; PULSE 75; TEMP 98.4
[2018-08-09 12:29] VITALS: BP 106/64; PULSE 79; TEMP 98.7
[2018-08-09 16:08] VITALS: BP 114/67; PULSE 80; TEMP 98.2
[2018-08-09 20:03] VITALS: BP 156/92; PULSE 87; TEMP 98.1
[2018-08-10 04:14] VITALS: BP 134/77; PULSE 92; TEMP 98.4
[2018-08-10 06:22] LABS: HEMATOCRIT 30.3 % (37.0-47.0)
[2018-08-10 08:02] VITALS: BP 147/86; PULSE 88; TEMP 98.4
[2018-08-10 12:44] VITALS: BP 141/84; PULSE 80; TEMP 98.7
[2018-08-10 15:32] VITALS: BP 132/75; PULSE 77; TEMP 97.9
[2018-08-10 20:00] VITALS: BP 139/80; PULSE 85; TEMP 98.1
[2018-08-11] VITALS: BP 140/76; PULSE 80; TEMP 98.2
[2018-08-11 04:00] VITALS: BP 145/75; PULSE 85; TEMP 98.4
[2018-08-11 05:44] LABS: MEAN CELL VOLUME 94 fl (80.0-100.0); MEAN CORPUSCULAR HGB CONC 33 g/dl (33.0-37.0); MEAN PLATELET VOLUME 9.5 fl (7.4-10.4); PLATELET COUNT 369 K/mm3 (130-400); RED BLOOD COUNT 3.04 M/mm3 (4.10-5.30); REDCELL DISTRIBUTION WIDTH-CV 13.1 % (11.5-14.5)
[2018-08-11 05:46] LABS: HEMATOCRIT 28.5 % (37.0-47.0); HEMOGLOBIN 9.4 g/dl (12.5-16.0); MEAN CORPUSCULAR HEMOGLOBIN 31 pg (27.0-31.0)
[2018-08-11 06:01] LABS: CALCIUM 8.5 mg/dL (8.4-10.2); CREATININE, serum 0.77 mg/dL (0.52-1.25); POTASSIUM 3.3 mmol/L (3.4-5.0)
[2018-08-11 08:08] VITALS: BP 135/82; PULSE 92; TEMP 97.4
[2018-08-11 11:47] VITALS: BP 139/77; PULSE 87; TEMP 98.1
[2018-08-11 15:19] VITALS: BP 135/77; PULSE 83; TEMP 98.4
[2018-08-11 20:30] VITALS: BP 149/88; PULSE 78; TEMP 97.8
[2018-08-12 07:28] LABS: MEAN CELL VOLUME 93 fl (80.0-100.0); MEAN CORPUSCULAR HGB CONC 33 g/dl (33.0-37.0); MEAN PLATELET VOLUME 9.6 fl (7.4-10.4); PLATELET COUNT 372 K/mm3 (130-400); RED BLOOD COUNT 3.09 M/mm3 (4.10-5.30)
[2018-08-12 07:29] LABS: HEMATOCRIT 28.7 % (37.0-47.0); HEMOGLOBIN 9.5 g/dl (12.5-16.0); MEAN CORPUSCULAR HEMOGLOBIN 31 pg (27.0-31.0)
[2018-08-12 07:37] LABS: BILIRUBIN,TOTAL 0.4 mg/dL (0.0-1.0); CALCIUM 8.1 mg/dL (8.4-10.2); CREATININE, serum 0.66 mg/dL (0.52-1.25); POTASSIUM 3.2 mmol/L (3.4-5.0); TOTAL PROTEIN 5.9 gm/dL (6.4-8.2)
[2018-08-12 08:00] VITALS: BP 151/82; PULSE 93; TEMP 98.9
[2018-08-12 08:16] LABS: BAND 1 % (0-10); BASOPHIL 1 % (0-2); LYMPHOCYTE 24 % (20.0-51.0); NEUTROPHILS 63 % (42.0-75.2)
[2018-08-12 08:17] LABS: PLATELET ESTIMATE NORMAL (NORMAL)
[2018-08-12 09:15] LABS: MAGNESIUM 1.3 mg/dL (1.6-2.3)
[2018-08-12 11:30] VITALS: BP 124/74; PULSE 85; TEMP 98.8
[2018-08-12 15:31] VITALS: BP 132/81; PULSE 84; TEMP 98.5
[2018-08-12 20:00] VITALS: BP 102/63; PULSE 97; TEMP 98.1
[2018-08-13 04:00] VITALS: BP 116/70; PULSE 83; TEMP 98.1
[2018-08-13 06:00] LABS: MEAN CELL VOLUME 92 fl (80.0-100.0); MEAN CORPUSCULAR HGB CONC 34 g/dl (33.0-37.0); MEAN PLATELET VOLUME 9.3 fl (7.4-10.4); PLATELET COUNT 320 K/mm3 (130-400); RED BLOOD COUNT 2.86 M/mm3 (4.10-5.30); REDCELL DISTRIBUTION WIDTH-CV 12.8 % (11.5-14.5)
[2018-08-13 06:07] LABS: HEMATOCRIT 26.4 % (37.0-47.0); HEMOGLOBIN 8.9 g/dl (12.5-16.0); MEAN CORPUSCULAR HEMOGLOBIN 31 pg (27.0-31.0)
[2018-08-13 06:15] LABS: ALBUMIN 2.7 gm/dL (3.5-5.0); BILIRUBIN,TOTAL 0.2 mg/dL (0.0-1.0); CALCIUM 8.2 mg/dL (8.4-10.2); CREATININE, serum 0.64 mg/dL (0.52-1.25); MAGNESIUM 1.4 mg/dL (1.6-2.3); PHOSPHOROUS 2.7 mg/dL (2.5-4.5); POTASSIUM 3.5 mmol/L (3.4-5.0); TOTAL PROTEIN 5.6 gm/dL (6.4-8.2)
[2018-08-13 06:57] LABS: BAND 12 % (0-10); EOSINOPHIL 5 % (0-4); LYMPHOCYTE 27 % (20.0-51.0); NEUTROPHILS 48 % (42.0-75.2); PLATELET ESTIMATE NORMAL (NORMAL)
[2018-08-13 08:26] VITALS: BP 126/72; PULSE 82; TEMP 98.1
[2018-08-13 11:34] VITALS: BP 121/71; PULSE 79; TEMP 98.8
[2018-08-13 16:30] VITALS: BP 109/70; PULSE 78; TEMP 98.4
[2018-08-13 20:00] VITALS: BP 112/68; PULSE 78; TEMP 98.3
[2018-08-14 00:24] VITALS: BP 122/70; PULSE 86; TEMP 97.8
[2018-08-14 04:29] VITALS: BP 115/70; PULSE 84; TEMP 98.4
[2018-08-14 06:14] LABS: CALCIUM 8.3 mg/dL (8.4-10.2); CREATININE, serum 0.56 mg/dL (0.52-1.25); MAGNESIUM 1.6 mg/dL (1.6-2.3); PHOSPHOROUS 3.9 mg/dL (2.5-4.5); POTASSIUM 3.5 mmol/L (3.4-5.0)
[2018-08-14 07:55] VITALS: BP 121/71; PULSE 82; TEMP 98.4
[2018-08-14 11:24] VITALS: BP 122/69; PULSE 79; TEMP 98.7
[2018-08-14 17:04] VITALS: BP 128/65; PULSE 82; TEMP 97.1
[2018-08-14 19:50] VITALS: BP 123/69; PULSE 83; TEMP 98
[2018-08-15 00:07] VITALS: BP 109/62; PULSE 81; TEMP 98.5
[2018-08-15 03:22] VITALS: BP 158/72; PULSE 100; TEMP 97.8
[2018-08-15 05:59] LABS: HEMOGLOBIN 10.1 g/dl (12.5-16.0); MEAN CELL VOLUME 94 fl (80.0-100.0); MEAN CORPUSCULAR HEMOGLOBIN 31 pg (27.0-31.0); MEAN CORPUSCULAR HGB CONC 33 g/dl (33.0-37.0); MEAN PLATELET VOLUME 9.5 fl (7.4-10.4); PLATELET COUNT 385 K/mm3 (130-400); RED BLOOD COUNT 3.24 M/mm3 (4.10-5.30); REDCELL DISTRIBUTION WIDTH-CV 13.2 % (11.5-14.5)
[2018-08-15 06:12] LABS: ALBUMIN 2.7 gm/dL (3.5-5.0); CALCIUM 8.4 mg/dL (8.4-10.2); CREATININE, serum 0.53 mg/dL (0.52-1.25); PHOSPHOROUS 3.8 mg/dL (2.5-4.5); POTASSIUM 4.1 mmol/L (3.4-5.0)
[2018-08-15 06:14] LABS: HEMATOCRIT 30.5 % (37.0-47.0)
[2018-08-15 07:19] LABS: BAND 9 % (0-10); EOSINOPHIL 5 % (0-4); LYMPHOCYTE 25 % (20.0-51.0); NEUTROPHILS 53 % (42.0-75.2); PLATELET ESTIMATE NORMAL (NORMAL)
[2018-08-15 08:48] VITALS: BP 115/72; PULSE 78; TEMP 98.1
[2018-08-15 12:05] VITALS: BP 115/69; PULSE 75; TEMP 97.8
[2018-08-15 14:25] VITALS: BP 120/65; PULSE 76; TEMP 97.1
[2018-08-15 20:06] VITALS: BP 137/77; PULSE 87; TEMP 98.2
[2018-08-16 04:09] VITALS: BP 114/73; PULSE 86; TEMP 99.8
[2018-08-16 06:43] LABS: CALCIUM 8.5 mg/dL (8.4-10.2); CREATININE, serum 0.58 mg/dL (0.52-1.25); MAGNESIUM 2.1 mg/dL (1.6-2.3); POTASSIUM 3.9 mmol/L (3.4-5.0)
[2018-08-16 07:46] VITALS: BP 112/67; PULSE 79; TEMP 98.5
[2018-08-16 11:54] VITALS: BP 115/66; PULSE 83; TEMP 99.1
[2018-08-16 15:27] VITALS: BP 118/70; PULSE 81; TEMP 98.8
[2018-08-16 19:15] VITALS: BP 116/70; PULSE 87; TEMP 98.4
[2018-08-17 00:36] VITALS: BP 104/64; PULSE 86; TEMP 98.2
[2018-08-17 04:12] VITALS: BP 117/68; PULSE 86; TEMP 98.5
[2018-08-17 09:35] VITALS: BP 109/66; PULSE 82; TEMP 98
[2018-08-17 13:07] VITALS: BP 109/65; PULSE 81; TEMP 97.7
[2018-08-17 17:41] VITALS: BP 93/67; PULSE 93; TEMP 98.2
[2018-08-17 20:00] VITALS: BP 119/67; PULSE 88; TEMP 99
[2018-08-18 04:00] VITALS: BP 109/64; PULSE 81; TEMP 97.9
[2018-08-18 06:56] LABS: CREATININE, serum 0.52 mg/dL (0.52-1.25); MAGNESIUM 2.1 mg/dL (1.6-2.3); PHOSPHOROUS 3.4 mg/dL (2.5-4.5); POTASSIUM 3.7 mmol/L (3.4-5.0)
[2018-08-18 08:05] VITALS: BP 122/66; PULSE 85; TEMP 98.2
[2018-08-18 11:23] LABS: 12 HR URINE TOTAL VOLUME 0.31 L
[2018-08-18 11:57] VITALS: BP 127/70; PULSE 88; TEMP 98.2
[2018-08-18 15:24] VITALS: BP 113/68; PULSE 87; TEMP 98.5
[2018-08-19 07:33] VITALS: BP 114/69; PULSE 79
[2018-08-19 11:01] VITALS: BP 120/71; PULSE 84; TEMP 98.6
[2018-08-19 15:51] VITALS: BP 117/75; PULSE 78; TEMP 98.3
[2018-08-19 20:00] VITALS: BP 121/72; PULSE 72; TEMP 98.6
[2018-08-20 04:00] VITALS: BP 103/66; PULSE 83; TEMP 98.3
[2018-08-20 06:30] LABS: MEAN CELL VOLUME 94 fl (80.0-100.0); MEAN CORPUSCULAR HGB CONC 32 g/dl (33.0-37.0); MEAN PLATELET VOLUME 9.5 fl (7.4-10.4); PLATELET COUNT 401 K/mm3 (130-400); RED BLOOD COUNT 2.86 M/mm3 (4.10-5.30); REDCELL DISTRIBUTION WIDTH-CV 12.8 % (11.5-14.5)
[2018-08-20 06:31] LABS: HEMATOCRIT 26.9 % (37.0-47.0); HEMOGLOBIN 8.6 g/dl (12.5-16.0); MEAN CORPUSCULAR HEMOGLOBIN 30 pg (27.0-31.0)
[2018-08-20 06:43] LABS: ALANINE AMINOTRANSFERASE 36 U/L (9-52); ALBUMIN 2.6 gm/dL (3.5-5.0); ALKALINE PHOSPHATASE 123 U/L (50-136); ANION GAP 4 mmol/L (7-16); AST,SGOT 26 U/L (15-37); BILIRUBIN,TOTAL < 0.1 mg/dL (0.0-1.0); BLOOD UREA NITROGEN 18 mg/dL (7-17); CALCIUM 8.3 mg/dL (8.4-10.2); CARBON DIOXIDE 34 mmol/L (22-30); CHLORIDE 97 mmol/L (98-107); CHOLESTEROL 136 mg/dL (120-200); CREATININE, serum 0.64 mg/dL (0.52-1.25); GLUCOSE 86 mg/dL (74-106); MAGNESIUM 2.1 mg/dL (1.6-2.3); PHOSPHOROUS 4.6 mg/dL (2.5-4.5); POTASSIUM 3.5 mmol/L (3.4-5.0); SODIUM 135 mmol/L (137-145); TOTAL PROTEIN 5.7 gm/dL (6.4-8.2); TRIGLYCERIDE 129 mg/dL
[2018-08-20 06:50] LABS: PRE ALBUMIN 15.5 mg/dL (17.6-36.0)
[2018-08-20 07:06] LABS: BAND 4 % (0-10); BASOPHIL 1 % (0-2); EOSINOPHIL 1 % (0-4); LYMPHOCYTE 27 % (20.0-51.0); NEUTROPHILS 60 % (42.0-75.2)
[2018-08-20 07:07] LABS: PLATELET ESTIMATE INCREASED (NORMAL)
[2018-08-20 08:29] VITALS: BP 117/71; PULSE 81; TEMP 98.2
[2018-08-20 12:01] VITALS: BP 123/75; PULSE 80; TEMP 98
[2018-08-20 16:35] VITALS: BP 102/72; PULSE 89; TEMP 98.4
[2018-08-20 20:00] VITALS: BP 106/62; PULSE 84; TEMP 98.5
[2018-08-21] VITALS (148 sets, daily range): BP systolic 99–109; BP diastolic 59–73; PULSE 79–123; TEMP 97.9–99; O2SAT 87–99
[2018-08-21 08:09] LABS: CALCIUM 8.3 mg/dL (8.4-10.2); CREATININE, serum 0.59 mg/dL (0.52-1.25); POTASSIUM 4.3 mmol/L (3.4-5.0)
[2018-08-21 17:55] LABS: HEMATOCRIT 22.4 % (37.0-47.0); HEMOGLOBIN 7.2 g/dl (12.5-16.0)
[2018-08-22] VITALS (544 sets, daily range): BP systolic 66–117; BP diastolic 42–75; PULSE 103–135; TEMP 97.6–98.8; O2SAT 71–100
[2018-08-22 05:50] LABS: MEAN CORPUSCULAR HGB CONC 33 g/dl (33.0-37.0); RED BLOOD COUNT 3.86 M/mm3 (4.10-5.30)
[2018-08-22 05:58] LABS: ALBUMIN 1.3 gm/dL (3.5-5.0); BILIRUBIN,TOTAL 0.1 mg/dL (0.0-1.0); CREATININE, serum 0.75 mg/dL (0.52-1.25); HEMATOCRIT 33.5 % (37.0-47.0); MAGNESIUM 1.5 mg/dL (1.6-2.3); MEAN CELL VOLUME 87 fl (80.0-100.0); MEAN CORPUSCULAR HEMOGLOBIN 29 pg (27.0-31.0); PHOSPHOROUS 2.4 mg/dL (2.5-4.5); POTASSIUM 4.1 mmol/L (3.4-5.0); TOTAL PROTEIN 3.3 gm/dL (6.4-8.2)
[2018-08-22 06:00] LABS: HEMOGLOBIN 11.2 g/dl (12.5-16.0); PLATELET COUNT 244 K/mm3 (130-400)
[2018-08-22 06:43] LABS: BAND 53 % (0-10); LYMPHOCYTE 24 % (20.0-51.0); NEUTROPHILS 15 % (42.0-75.2); PLATELET ESTIMATE NORMAL (NORMAL)
[2018-08-22 12:54] LABS: ARTERIAL BLD GAS O2 SATURATION 95.6 % (92-100); ARTERIAL BLD GAS TCO2 CT 18.8; ARTERIAL BLOOD GAS BASE EXCESS -4.4 (-2-2); ARTERIAL BLOOD GAS PCO2 26.5 mmHg (35-45); ARTERIAL BLOOD GAS PO2 74.4 mmHg (80-100); ARTERIAL BLOOD GAS pH 7.45 (7.35-7.45)
[2018-08-22 13:04] LABS: HEMATOCRIT 37.5 % (37.0-47.0); HEMOGLOBIN 12.4 g/dl (12.5-16.0); MEAN CELL VOLUME 88 fl (80.0-100.0); MEAN CORPUSCULAR HEMOGLOBIN 29 pg (27.0-31.0); MEAN CORPUSCULAR HGB CONC 33 g/dl (33.0-37.0); MEAN PLATELET VOLUME 9.4 fl (7.4-10.4); PLATELET COUNT 296 K/mm3 (130-400); RED BLOOD COUNT 4.24 M/mm3 (4.10-5.30)
[2018-08-22 13:14] LABS: BAND 44 % (0-10); LYMPHOCYTE 25 % (20.0-51.0); NEUTROPHILS 10 % (42.0-75.2)
[2018-08-22 13:15] LABS: CALCIUM 7.1 mg/dL (8.4-10.2); CREATININE, serum 0.79 mg/dL (0.52-1.25); MAGNESIUM 1.6 mg/dL (1.6-2.3); PHOSPHOROUS 2.1 mg/dL (2.5-4.5); POTASSIUM 4.2 mmol/L (3.4-5.0)
[2018-08-22 13:16] LABS: PLATELET ESTIMATE NORMAL (NORMAL)
[2018-08-22] MEDS ORDERED: PREMARIN 0.60.625 M1 PO (18:32)
[2018-08-22] MEDS ORDERED: TUMS500 MG PO (18:38)
[2018-08-22] MEDS ORDERED: SYNTHROID0.05 MG/TA PO (18:39)
[2018-08-22 21:20] LABS: ARTERIAL BLD GAS O2 SATURATION 94.4 % (92-100); ARTERIAL BLD GAS TCO2 CT 19.9; ARTERIAL BLOOD GAS BASE EXCESS -5.8 (-2-2); ARTERIAL BLOOD GAS HCO3 18.9 meq/L (22-26); ARTERIAL BLOOD GAS PCO2 34.1 mmHg (35-45); ARTERIAL BLOOD GAS pH 7.36 (7.35-7.45)
[2018-08-22 21:20] LABS: MAGNESIUM 1.5 mg/dL (1.6-2.3); PHOSPHOROUS 2.7 mg/dL (2.5-4.5); POTASSIUM 3.6 mmol/L (3.4-5.0)
[2018-08-23] VITALS (850 sets, daily range): BP systolic 87–125; BP diastolic 46–61; PULSE 98–110; TEMP 97.7–98.8; O2SAT 67–100
[2018-08-23 05:02] LABS: ARTERIAL BLD GAS O2 SATURATION 94.7 % (92-100); ARTERIAL BLD GAS TCO2 CT 18.7; ARTERIAL BLOOD GAS BASE EXCESS -7.4 (-2-2); ARTERIAL BLOOD GAS HCO3 17.6 meq/L (22-26); ARTERIAL BLOOD GAS PCO2 33.6 mmHg (35-45); ARTERIAL BLOOD GAS PO2 74.2 mmHg (80-100); ARTERIAL BLOOD GAS pH 7.34 (7.35-7.45)
[2018-08-23 06:01] LABS: BASO % 0.5 % (0.0-2.0); GRAN # 3.3 (1.4-6.5); GRAN % 83.1 % (42.2-75.2); LYMPH # 0.5 (1.2-3.4); LYMPH % 11.8 % (20.0-51.0); MEAN CELL VOLUME 89 fl (80.0-100.0); MEAN CORPUSCULAR HGB CONC 33 g/dl (33.0-37.0); MEAN PLATELET VOLUME 9.5 fl (7.4-10.4); MONO # 0.1 (0.1-0.6); MONO % 2.8 % (1.7-9.3); RED BLOOD COUNT 3.29 M/mm3 (4.10-5.30); REDCELL DISTRIBUTION WIDTH-CV 16.2 % (11.5-14.5)
[2018-08-23 06:15] LABS: HEMATOCRIT 29.3 % (37.0-47.0); HEMOGLOBIN 9.7 g/dl (12.5-16.0); MEAN CORPUSCULAR HEMOGLOBIN 29 pg (27.0-31.0); PLATELET COUNT 160 K/mm3 (130-400)
[2018-08-23 06:23] LABS: ALBUMIN 1.6 gm/dL (3.5-5.0); BILIRUBIN,TOTAL 0.2 mg/dL (0.0-1.0); CALCIUM 6.4 mg/dL (8.4-10.2); CREATININE, serum 0.64 mg/dL (0.52-1.25); PHOSPHOROUS 2.8 mg/dL (2.5-4.5); POTASSIUM 3.9 mmol/L (3.4-5.0); TOTAL PROTEIN 3.7 gm/dL (6.4-8.2)
[2018-08-23 12:26] LABS: HEMATOCRIT 27.2 % (37.0-47.0); HEMOGLOBIN 8.7 g/dl (12.5-16.0)
[2018-08-23 21:13] LABS: HEMATOCRIT 29.2 % (37.0-47.0); HEMOGLOBIN 9.5 g/dl (12.5-16.0)
[2018-08-24] VITALS (1353 sets, daily range): BP systolic 100–128; BP diastolic 56–68; PULSE 97–112; TEMP 97.3–98.5; O2SAT 55–100
[2018-08-24 05:32] LABS: ARTERIAL BLD GAS O2 SATURATION 93.4 % (92-100); ARTERIAL BLD GAS TCO2 CT 22.4; ARTERIAL BLOOD GAS BASE EXCESS -4.9 (-2-2); ARTERIAL BLOOD GAS HCO3 21.1 meq/L (22-26); ARTERIAL BLOOD GAS PCO2 42.8 mmHg (35-45); ARTERIAL BLOOD GAS PO2 68.6 mmHg (80-100); ARTERIAL BLOOD GAS pH 7.31 (7.35-7.45)
[2018-08-24 05:56] LABS: MEAN CELL VOLUME 90 fl (80.0-100.0); MEAN CORPUSCULAR HGB CONC 32 g/dl (33.0-37.0); MEAN PLATELET VOLUME 10.2 fl (7.4-10.4); PLATELET COUNT 117 K/mm3 (130-400); RED BLOOD COUNT 3.18 M/mm3 (4.10-5.30); REDCELL DISTRIBUTION WIDTH-CV 16.5 % (11.5-14.5)
[2018-08-24 06:01] LABS: HEMATOCRIT 28.7 % (37.0-47.0); HEMOGLOBIN 9.2 g/dl (12.5-16.0); MEAN CORPUSCULAR HEMOGLOBIN 29 pg (27.0-31.0)
[2018-08-24 06:15] LABS: BILIRUBIN,TOTAL 0.3 mg/dL (0.0-1.0); CALCIUM 7.6 mg/dL (8.4-10.2); CREATININE, serum 0.59 mg/dL (0.52-1.25); MAGNESIUM 2.2 mg/dL (1.6-2.3); PHOSPHOROUS 3.1 mg/dL (2.5-4.5); POTASSIUM 3.8 mmol/L (3.4-5.0); TOTAL PROTEIN 4.3 gm/dL (6.4-8.2)
[2018-08-24 07:26] LABS: BAND 59 % (0-10); BASOPHIL 1 % (0-2); LYMPHOCYTE 14 % (20.0-51.0); NEUTROPHILS 20 % (42.0-75.2); PLATELET ESTIMATE DECREASED (NORMAL)
[2018-08-24 07:27] LABS: ANISOCYTOSIS 1+; DOHLE BODIES PRESENT; HYPOCHROMIA 1+
[2018-08-24 17:10] LABS: ARTERIAL BLD GAS O2 SATURATION 94.6 % (92-100); ARTERIAL BLD GAS TCO2 CT 22.5; ARTERIAL BLOOD GAS BASE EXCESS -3.7 (-2-2); ARTERIAL BLOOD GAS HCO3 21.3 meq/L (22-26); ARTERIAL BLOOD GAS PCO2 38.2 mmHg (35-45); ARTERIAL BLOOD GAS PO2 68.9 mmHg (80-100); ARTERIAL BLOOD GAS pH 7.36 (7.35-7.45)
[2018-08-24 17:35] LABS: MEAN CELL VOLUME 90 fl (80.0-100.0); MEAN CORPUSCULAR HGB CONC 33 g/dl (33.0-37.0); MEAN PLATELET VOLUME 10.8 fl (7.4-10.4); PLATELET COUNT 111 K/mm3 (130-400); RED BLOOD COUNT 3.11 M/mm3 (4.10-5.30); REDCELL DISTRIBUTION WIDTH-CV 16.4 % (11.5-14.5)
[2018-08-24 17:38] LABS: HEMOGLOBIN 9.1 g/dl (12.5-16.0); MEAN CORPUSCULAR HEMOGLOBIN 29 pg (27.0-31.0)
[2018-08-24 22:14] LABS: POTASSIUM 2.7 mmol/L (3.4-5.0)
[2018-08-25] VITALS (1211 sets, daily range): BP systolic 93–141; BP diastolic 60–91; PULSE 103–116; TEMP 98.1–98.6; O2SAT 69–100
[2018-08-25 05:24] LABS: MEAN CELL VOLUME 88 fl (80.0-100.0); MEAN CORPUSCULAR HGB CONC 34 g/dl (33.0-37.0); MEAN PLATELET VOLUME 10.4 fl (7.4-10.4); PLATELET COUNT 115 K/mm3 (130-400); RED BLOOD COUNT 3.12 M/mm3 (4.10-5.30); REDCELL DISTRIBUTION WIDTH-CV 15.9 % (11.5-14.5)
[2018-08-25 05:26] LABS: HEMATOCRIT 27.4 % (37.0-47.0); HEMOGLOBIN 9.2 g/dl (12.5-16.0); MEAN CORPUSCULAR HEMOGLOBIN 29 pg (27.0-31.0)
[2018-08-25 05:36] LABS: ALBUMIN 2.2 gm/dL (3.5-5.0); BILIRUBIN,TOTAL 0.4 mg/dL (0.0-1.0); CALCIUM 8.1 mg/dL (8.4-10.2); CREATININE, serum 0.59 mg/dL (0.52-1.25); MAGNESIUM 1.9 mg/dL (1.6-2.3); PHOSPHOROUS 2.2 mg/dL (2.5-4.5); POTASSIUM 3.1 mmol/L (3.4-5.0); TOTAL PROTEIN 4.6 gm/dL (6.4-8.2)
[2018-08-25 05:46] LABS: ARTERIAL BLD GAS O2 SATURATION 95.7 % (92-100); ARTERIAL BLD GAS TCO2 CT 29.3; ARTERIAL BLOOD GAS HCO3 28.1 meq/L (22-26); ARTERIAL BLOOD GAS PCO2 39.9 mmHg (35-45); ARTERIAL BLOOD GAS PO2 71.7 mmHg (80-100); ARTERIAL BLOOD GAS pH 7.47 (7.35-7.45)
[2018-08-25 06:10] LABS: BAND 30 % (0-10); EOSINOPHIL 1 % (0-4); LYMPHOCYTE 14 % (20.0-51.0); MYELOCYTE 2 % (0-0); NEUTROPHILS 47 % (42.0-75.2)
[2018-08-25 06:11] LABS: ANISOCYTOSIS 2+; HYPOCHROMIA 1+; OVALOCYTES 1+; PLATELET ESTIMATE DECREASED (NORMAL)
[2018-08-25 06:12] LABS: POLYCHROMASIA 2+
[2018-08-25 11:04] LABS: PATHOLOGY DIFF REVIEW OK +
[2018-08-25 23:42] LABS: MAGNESIUM 1.7 mg/dL (1.6-2.3); PHOSPHOROUS 3.9 mg/dL (2.5-4.5); POTASSIUM 3.3 mmol/L (3.4-5.0)
[2018-08-26] VITALS (1087 sets, daily range): BP systolic 104–126; BP diastolic 61–76; PULSE 91–114; TEMP 97.8–98.7; O2SAT 76–100
[2018-08-26 06:17] LABS: MEAN CELL VOLUME 89 fl (80.0-100.0); MEAN CORPUSCULAR HGB CONC 33 g/dl (33.0-37.0); MEAN PLATELET VOLUME 11.4 fl (7.4-10.4); PLATELET COUNT 114 K/mm3 (130-400); RED BLOOD COUNT 2.99 M/mm3 (4.10-5.30); REDCELL DISTRIBUTION WIDTH-CV 15.9 % (11.5-14.5)
[2018-08-26 06:22] LABS: HEMATOCRIT 26.5 % (37.0-47.0); HEMOGLOBIN 8.6 g/dl (12.5-16.0); MEAN CORPUSCULAR HEMOGLOBIN 29 pg (27.0-31.0)
[2018-08-26 06:29] LABS: BILIRUBIN,TOTAL 0.4 mg/dL (0.0-1.0); CALCIUM 7.7 mg/dL (8.4-10.2); CREATININE, serum 0.54 mg/dL (0.52-1.25); MAGNESIUM 2.2 mg/dL (1.6-2.3); PHOSPHOROUS 3.4 mg/dL (2.5-4.5); POTASSIUM 3.7 mmol/L (3.4-5.0); TOTAL PROTEIN 4.5 gm/dL (6.4-8.2)
[2018-08-26 07:10] LABS: BAND 39 % (0-10); DOHLE BODIES PRESENT; HYPOCHROMIA 1+; LYMPHOCYTE 19 % (20.0-51.0); NEUTROPHILS 35 % (42.0-75.2); PLATELET ESTIMATE DECREASED (NORMAL)
[2018-08-26 07:11] LABS: STOMATOCYTE 1+
[2018-08-26 18:24] LABS: CALCIUM 7.5 mg/dL (8.4-10.2); CREATININE, serum 0.5 mg/dL (0.52-1.25); MAGNESIUM 1.8 mg/dL (1.6-2.3)
[2018-08-27] VITALS (926 sets, daily range): BP systolic 96–133; BP diastolic 63–77; PULSE 103–113; TEMP 97.9–98.6; O2SAT 83–99
[2018-08-27 05:37] LABS: MEAN CELL VOLUME 88 fl (80.0-100.0); MEAN CORPUSCULAR HGB CONC 33 g/dl (33.0-37.0); MEAN PLATELET VOLUME 11.3 fl (7.4-10.4); PLATELET COUNT 171 K/mm3 (130-400); RED BLOOD COUNT 3.27 M/mm3 (4.10-5.30); REDCELL DISTRIBUTION WIDTH-CV 15.5 % (11.5-14.5)
[2018-08-27 05:38] LABS: HEMATOCRIT 28.6 % (37.0-47.0); HEMOGLOBIN 9.5 g/dl (12.5-16.0); MEAN CORPUSCULAR HEMOGLOBIN 29 pg (27.0-31.0)
[2018-08-27 05:49] LABS: ALBUMIN 2.2 gm/dL (3.5-5.0); BILIRUBIN,TOTAL 0.7 mg/dL (0.0-1.0); CALCIUM 7.8 mg/dL (8.4-10.2); CREATININE, serum 0.55 mg/dL (0.52-1.25); MAGNESIUM 1.8 mg/dL (1.6-2.3); PHOSPHOROUS 2.8 mg/dL (2.5-4.5); POTASSIUM 3.9 mmol/L (3.4-5.0); TOTAL PROTEIN 4.8 gm/dL (6.4-8.2)
[2018-08-27 05:57] LABS: ARTERIAL BLD GAS O2 SATURATION 93.6 % (92-100); ARTERIAL BLD GAS TCO2 CT 23.8; ARTERIAL BLOOD GAS BASE EXCESS 1.1 (-2-2); ARTERIAL BLOOD GAS PCO2 27.8 mmHg (35-45); ARTERIAL BLOOD GAS PO2 61.3 mmHg (80-100); ARTERIAL BLOOD GAS pH 7.54 (7.35-7.45)
[2018-08-27 06:47] LABS: BAND 38 % (0-10); EOSINOPHIL 2 % (0-4); LYMPHOCYTE 17 % (20.0-51.0); METAMYELOCYTE 3 % (0-0); NEUTROPHILS 38 % (42.0-75.2); PLATELET ESTIMATE NORMAL (NORMAL)
[2018-08-27 06:48] LABS: HYPOCHROMIA 1+
[2018-08-27 06:50] LABS: ANISOCYTOSIS 1+
[2018-08-27 08:09] LABS: PATHOLOGY DIFF REVIEW OK +
[2018-08-27 10:56] LABS: PLEURAL FLUID RBC 1000 /mm3 (0-0); PLEURAL FLUID WBC 2006 /mm3
[2018-08-27 10:58] LABS: PLEURAL FLUID COLOR YELLOW
[2018-08-27 10:59] LABS: PLEURAL FLUID APPEARANCE HAZY
[2018-08-27 11:04] LABS: GLUCOSE,PLEURAL FLUID 57 mg/dL
[2018-08-27 11:12] LABS: TOTAL PROTEIN,PLEURAL FLUID < 2.0 gm/dL
[2018-08-27 15:01] LABS: CALCIUM 7.9 mg/dL (8.4-10.2); CREATININE, serum 0.62 mg/dL (0.52-1.25); POTASSIUM 3.1 mmol/L (3.4-5.0)
[2018-08-28] VITALS (530 sets, daily range): BP systolic 110–150; BP diastolic 69–94; PULSE 82–105; TEMP 98–99.5; O2SAT 61–100
[2018-08-28 05:31] LABS: HEMATOCRIT 27.1 % (37.0-47.0); HEMOGLOBIN 8.6 g/dl (12.5-16.0); MEAN CELL VOLUME 92 fl (80.0-100.0); MEAN CORPUSCULAR HEMOGLOBIN 29 pg (27.0-31.0); MEAN CORPUSCULAR HGB CONC 32 g/dl (33.0-37.0); MEAN PLATELET VOLUME 11.4 fl (7.4-10.4); PLATELET COUNT 201 K/mm3 (130-400); RED BLOOD COUNT 2.95 M/mm3 (4.10-5.30); REDCELL DISTRIBUTION WIDTH-CV 15.7 % (11.5-14.5)
[2018-08-28 05:40] LABS: ALBUMIN 2.2 gm/dL (3.5-5.0); BILIRUBIN,TOTAL 0.5 mg/dL (0.0-1.0); CALCIUM 7.9 mg/dL (8.4-10.2); CREATININE, serum 0.62 mg/dL (0.52-1.25); POTASSIUM 4.2 mmol/L (3.4-5.0); TOTAL PROTEIN 4.8 gm/dL (6.4-8.2)
[2018-08-28 07:55] LABS: ANISOCYTOSIS 1+; BAND 33 % (0-10); EOSINOPHIL 3 % (0-4); HYPOCHROMIA 1+; LYMPHOCYTE 11 % (20.0-51.0); METAMYELOCYTE 5 % (0-0); NEUTROPHILS 43 % (42.0-75.2); PLATELET ESTIMATE NORMAL (NORMAL)
[2018-08-28 19:14] LABS: ARTERIAL BLD GAS O2 SATURATION 97.8 % (92-100); ARTERIAL BLD GAS TCO2 CT 22.8; ARTERIAL BLOOD GAS BASE EXCESS -9.2 (-2-2); ARTERIAL BLOOD GAS HCO3 20.7 meq/L (22-26)
[2018-08-28 19:15] LABS: ARTERIAL BLOOD GAS PCO2 67.9 mmHg (35-45); ARTERIAL BLOOD GAS PO2 169.6 mmHg (80-100)
[2018-08-28 20:08] LABS: MEAN CELL VOLUME 90 fl (80.0-100.0); MEAN CORPUSCULAR HGB CONC 32 g/dl (33.0-37.0); MEAN PLATELET VOLUME 11.6 fl (7.4-10.4); PLATELET COUNT 260 K/mm3 (130-400); RED BLOOD COUNT 3.16 M/mm3 (4.10-5.30); REDCELL DISTRIBUTION WIDTH-CV 15.3 % (11.5-14.5)
[2018-08-28 20:10] LABS: HEMATOCRIT 28.3 % (37.0-47.0); HEMOGLOBIN 9.1 g/dl (12.5-16.0); MEAN CORPUSCULAR HEMOGLOBIN 29 pg (27.0-31.0)
[2018-08-28 20:11] LABS: ARTERIAL BLD GAS O2 SATURATION 97.9 % (92-100); ARTERIAL BLD GAS TCO2 CT 24.9; ARTERIAL BLOOD GAS BASE EXCESS -0.9 (-2-2); ARTERIAL BLOOD GAS HCO3 23.7 meq/L (22-26); ARTERIAL BLOOD GAS PCO2 39.1 mmHg (35-45); ARTERIAL BLOOD GAS PO2 145.8 mmHg (80-100)
[2018-08-28 20:18] LABS: CALCIUM 7.2 mg/dL (8.4-10.2); CREATININE, serum 0.63 mg/dL (0.52-1.25); POTASSIUM 4.5 mmol/L (3.4-5.0)
[2018-08-28 20:26] LABS: BAND 15 % (0-10); LYMPHOCYTE 6 % (20.0-51.0); METAMYELOCYTE 9 % (0-0); NEUTROPHILS 66 % (42.0-75.2)
[2018-08-28 20:27] LABS: PLATELET ESTIMATE NORMAL (NORMAL)
[2018-08-28 22:08] LABS: BASO # 0.2 (0.0-0.2); BASO % 0.6 % (0.0-2.0); GRAN # 23.3 (1.4-6.5); GRAN % 79.5 % (42.2-75.2); LYMPH # 1.4 (1.2-3.4); LYMPH % 4.8 % (20.0-51.0); MEAN CELL VOLUME 87 fl (80.0-100.0); MEAN CORPUSCULAR HGB CONC 33 g/dl (33.0-37.0); MEAN PLATELET VOLUME 11.5 fl (7.4-10.4); MONO % 3.3 % (1.7-9.3); PLATELET COUNT 253 K/mm3 (130-400); RED BLOOD COUNT 3.24 M/mm3 (4.10-5.30); REDCELL DISTRIBUTION WIDTH-CV 15.2 % (11.5-14.5)
[2018-08-28 22:09] LABS: HEMATOCRIT 28.2 % (37.0-47.0); HEMOGLOBIN 9.4 g/dl (12.5-16.0); MEAN CORPUSCULAR HEMOGLOBIN 29 pg (27.0-31.0)
[2018-08-28 22:11] LABS: ARTERIAL BLD GAS O2 SATURATION 97.7 % (92-100); ARTERIAL BLD GAS TCO2 CT 25.2; ARTERIAL BLOOD GAS BASE EXCESS 0.2 (-2-2); ARTERIAL BLOOD GAS HCO3 24.1 meq/L (22-26); ARTERIAL BLOOD GAS PCO2 36.3 mmHg (35-45); ARTERIAL BLOOD GAS PO2 118.7 mmHg (80-100); ARTERIAL BLOOD GAS pH 7.44 (7.35-7.45)
[2018-08-28 22:13] LABS: INR 1.1 (0.8-3.0); PROTHROMBIN TIME 12.3 SECONDS (9.7-12.8)
[2018-08-28 22:20] LABS: ALANINE AMINOTRANSFERASE 37 U/L (9-52); ALBUMIN 2.2 gm/dL (3.5-5.0); ALKALINE PHOSPHATASE 65 U/L (50-136); ANION GAP 2 mmol/L (7-16); AST,SGOT 33 U/L (15-37); BILIRUBIN,TOTAL 0.8 mg/dL (0.0-1.0); BLOOD UREA NITROGEN 19 mg/dL (7-17); CALCIUM 7.4 mg/dL (8.4-10.2); CARBON DIOXIDE 30 mmol/L (22-30); CHLORIDE 107 mmol/L (98-107); CREATININE, serum 0.61 mg/dL (0.52-1.25); GLUCOSE 166 mg/dL (74-106); MAGNESIUM 1.8 mg/dL (1.6-2.3); PHOSPHOROUS 5.8 mg/dL (2.5-4.5); SODIUM 139 mmol/L (137-145); TOTAL PROTEIN 4.6 gm/dL (6.4-8.2)
[2018-08-28 22:31] LABS: TROPONIN-I < 0.012 ng/mL (0.000-0.034)
[2018-08-29] VITALS (732 sets, daily range): BP systolic 109–152; BP diastolic 57–90; PULSE 81–104; TEMP 97.8–99.4; O2SAT 75–99
[2018-08-29 01:19] LABS: COLLECTION METHOD CLEAN CATCH
[2018-08-29 01:30] LABS: MUCOUS Present /lpf; PH 6 (5-8); SQUAMOUS EPITHELIAL 0-2 /hpf; URINE APPEARANCE Clear; URINE BACTERIA None Seen /hpf; URINE BILIRUBIN Negative (NEGATIVE); URINE BLOOD Negative (NEGATIVE); URINE COLOR Yellow; URINE GLUCOSE 1+ (NEGATIVE); URINE KETONE Negative (NEGATIVE); URINE LEUKOCYTE ESTERASE Negative (NEGATIVE); URINE NITRATE Negative (NEGATIVE); URINE PROTEIN(semi-quant) 1+ (NEGATIVE); URINE UROBILINOGEN Negative (NEGATIVE); URINE WBC None Seen /hpf
[2018-08-29 01:40] LABS: ARTERIAL BLD GAS TCO2 CT 24.8; ARTERIAL BLOOD GAS BASE EXCESS 0.3 (-2-2); ARTERIAL BLOOD GAS HCO3 23.8 meq/L (22-26); ARTERIAL BLOOD GAS PCO2 33.4 mmHg (35-45); ARTERIAL BLOOD GAS PO2 87.3 mmHg (80-100); ARTERIAL BLOOD GAS pH 7.47 (7.35-7.45)
[2018-08-29 05:34] LABS: ARTERIAL BLD GAS TCO2 CT 23.1; ARTERIAL BLOOD GAS BASE EXCESS -1.6 (-2-2); ARTERIAL BLOOD GAS PCO2 34.2 mmHg (35-45); ARTERIAL BLOOD GAS PO2 90.3 mmHg (80-100); ARTERIAL BLOOD GAS pH 7.43 (7.35-7.45)
[2018-08-29 06:25] LABS: MEAN CELL VOLUME 88 fl (80.0-100.0); MEAN CORPUSCULAR HGB CONC 33 g/dl (33.0-37.0); MEAN PLATELET VOLUME 11.5 fl (7.4-10.4); PLATELET COUNT 242 K/mm3 (130-400); REDCELL DISTRIBUTION WIDTH-CV 15.6 % (11.5-14.5)
[2018-08-29 06:29] LABS: HEMATOCRIT 27.4 % (37.0-47.0); HEMOGLOBIN 8.9 g/dl (12.5-16.0); MEAN CORPUSCULAR HEMOGLOBIN 29 pg (27.0-31.0)
[2018-08-29 06:33] LABS: INR 1.1 (0.8-3.0); PROTHROMBIN TIME 12.9 SECONDS (9.7-12.8)
[2018-08-29 06:49] LABS: ALBUMIN 2.1 gm/dL (3.5-5.0); BILIRUBIN,TOTAL 0.5 mg/dL (0.0-1.0); CALCIUM 7.5 mg/dL (8.4-10.2); CREATININE, serum 0.59 mg/dL (0.52-1.25); MAGNESIUM 1.9 mg/dL (1.6-2.3); PHOSPHOROUS 3.9 mg/dL (2.5-4.5); POTASSIUM 3.5 mmol/L (3.4-5.0); TOTAL PROTEIN 4.3 gm/dL (6.4-8.2)
[2018-08-29 07:39] LABS: BAND 25 % (0-10); HYPOCHROMIA 1+; LYMPHOCYTE 7 % (20.0-51.0); NEUTROPHILS 66 % (42.0-75.2); PLATELET ESTIMATE NORMAL (NORMAL)
[2018-08-30] VITALS (957 sets, daily range): BP systolic 123–147; BP diastolic 70–93; PULSE 90–99; TEMP 97.7–98.8; O2SAT 92–100
[2018-08-30 05:36] LABS: MEAN CELL VOLUME 88 fl (80.0-100.0); MEAN CORPUSCULAR HGB CONC 33 g/dl (33.0-37.0); MEAN PLATELET VOLUME 11.3 fl (7.4-10.4); PLATELET COUNT 319 K/mm3 (130-400); RED BLOOD COUNT 2.85 M/mm3 (4.10-5.30); REDCELL DISTRIBUTION WIDTH-CV 15.9 % (11.5-14.5)
[2018-08-30 05:37] LABS: HEMATOCRIT 25.2 % (37.0-47.0); HEMOGLOBIN 8.3 g/dl (12.5-16.0); MEAN CORPUSCULAR HEMOGLOBIN 29 pg (27.0-31.0)
[2018-08-30 05:52] LABS: INR 1.1 (0.8-3.0); PROTHROMBIN TIME 12.9 SECONDS (9.7-12.8)
[2018-08-30 05:53] LABS: ALBUMIN 2.1 gm/dL (3.5-5.0); BILIRUBIN,TOTAL 0.2 mg/dL (0.0-1.0); CALCIUM 8.3 mg/dL (8.4-10.2); CREATININE, serum 0.54 mg/dL (0.52-1.25); PHOSPHOROUS 3.4 mg/dL (2.5-4.5); POTASSIUM 3.4 mmol/L (3.4-5.0); TOTAL PROTEIN 4.6 gm/dL (6.4-8.2)
[2018-08-30 06:20] LABS: BAND 23 % (0-10); LYMPHOCYTE 6 % (20.0-51.0); NEUTROPHILS 65 % (42.0-75.2)
[2018-08-30 06:21] LABS: HYPOCHROMIA 1+; PLATELET ESTIMATE NORMAL (NORMAL)
[2018-08-30 07:12] LABS: ARTERIAL BLD GAS O2 SATURATION 91.5 % (92-100); ARTERIAL BLD GAS TCO2 CT 27.4; ARTERIAL BLOOD GAS BASE EXCESS 2.8 (-2-2); ARTERIAL BLOOD GAS HCO3 26.3 meq/L (22-26); ARTERIAL BLOOD GAS PCO2 35.5 mmHg (35-45); ARTERIAL BLOOD GAS pH 7.49 (7.35-7.45)
[2018-08-31] VITALS (917 sets, daily range): BP systolic 98–145; BP diastolic 64–91; PULSE 73–121; TEMP 97.3–97.8; O2SAT 51–100
[2018-08-31 07:39] LABS: MEAN CELL VOLUME 88 fl (80.0-100.0); MEAN CORPUSCULAR HGB CONC 33 g/dl (33.0-37.0); MEAN PLATELET VOLUME 10.6 fl (7.4-10.4); PLATELET COUNT 384 K/mm3 (130-400); RED BLOOD COUNT 3.45 M/mm3 (4.10-5.30); REDCELL DISTRIBUTION WIDTH-CV 15.8 % (11.5-14.5)
[2018-08-31 07:46] LABS: HEMATOCRIT 30.3 % (37.0-47.0); HEMOGLOBIN 9.9 g/dl (12.5-16.0); MEAN CORPUSCULAR HEMOGLOBIN 29 pg (27.0-31.0)
[2018-08-31 07:50] LABS: INR 1.2 (0.8-3.0); PROTHROMBIN TIME 13.1 SECONDS (9.7-12.8)
[2018-08-31 07:51] LABS: ALBUMIN 2.2 gm/dL (3.5-5.0); BILIRUBIN,TOTAL 0.5 mg/dL (0.0-1.0); CALCIUM 8.2 mg/dL (8.4-10.2); CREATININE, serum 0.52 mg/dL (0.52-1.25); MAGNESIUM 2.2 mg/dL (1.6-2.3); PHOSPHOROUS 3.4 mg/dL (2.5-4.5); POTASSIUM 4.2 mmol/L (3.4-5.0); TOTAL PROTEIN 4.9 gm/dL (6.4-8.2)
[2018-08-31 08:12] LABS: BAND 31 % (0-10); HYPOCHROMIA 1+; LYMPHOCYTE 6 % (20.0-51.0); NEUTROPHILS 60 % (42.0-75.2); PLATELET ESTIMATE NORMAL (NORMAL); STOMATOCYTE 1+
[2018-08-31 09:47] LABS: MEAN CELL VOLUME 87 fl (80.0-100.0); MEAN CORPUSCULAR HGB CONC 33 g/dl (33.0-37.0); MEAN PLATELET VOLUME 10.8 fl (7.4-10.4); PLATELET COUNT 376 K/mm3 (130-400); RED BLOOD COUNT 3.31 M/mm3 (4.10-5.30); REDCELL DISTRIBUTION WIDTH-CV 15.7 % (11.5-14.5)
[2018-08-31 09:48] LABS: HEMATOCRIT 28.8 % (37.0-47.0); HEMOGLOBIN 9.6 g/dl (12.5-16.0); MEAN CORPUSCULAR HEMOGLOBIN 29 pg (27.0-31.0)
[2018-08-31 10:15] LABS: BAND 24 % (0-10); LYMPHOCYTE 4 % (20.0-51.0); NEUTROPHILS 70 % (42.0-75.2); PLATELET ESTIMATE NORMAL (NORMAL); STOMATOCYTE 1+
[2018-09-01] VITALS (540 sets, daily range): BP systolic 94–117; BP diastolic 59–79; PULSE 94–113; TEMP 97.7–99.2; O2SAT 91–100
[2018-09-01 07:09] LABS: MEAN CELL VOLUME 89 fl (80.0-100.0); MEAN CORPUSCULAR HGB CONC 32 g/dl (33.0-37.0); MEAN PLATELET VOLUME 10.6 fl (7.4-10.4); PLATELET COUNT 416 K/mm3 (130-400); RED BLOOD COUNT 2.89 M/mm3 (4.10-5.30); REDCELL DISTRIBUTION WIDTH-CV 15.7 % (11.5-14.5)
[2018-09-01 07:22] LABS: ALBUMIN 1.9 gm/dL (3.5-5.0); BILIRUBIN,TOTAL 0.4 mg/dL (0.0-1.0); CALCIUM 7.6 mg/dL (8.4-10.2); CREATININE, serum 0.5 mg/dL (0.52-1.25); POTASSIUM 3.7 mmol/L (3.4-5.0); TOTAL PROTEIN 4.5 gm/dL (6.4-8.2)
[2018-09-01 07:37] LABS: HEMATOCRIT 25.8 % (37.0-47.0); HEMOGLOBIN 8.3 g/dl (12.5-16.0); MEAN CORPUSCULAR HEMOGLOBIN 29 pg (27.0-31.0)
[2018-09-01 07:48] LABS: BAND 15 % (0-10); HYPOCHROMIA 1+; LYMPHOCYTE 10 % (20.0-51.0); NEUTROPHILS 73 % (42.0-75.2); PLATELET ESTIMATE INCREASED (NORMAL); TOXIC GRANULATION PRESENT
[2018-09-01 07:49] LABS: STOMATOCYTE 1+
[2018-09-01 10:12] LABS: MAGNESIUM 2.2 mg/dL (1.6-2.3); PHOSPHOROUS 4.2 mg/dL (2.5-4.5)
[2018-09-02] VITALS (7 sets, daily range): BP systolic 102–116; BP diastolic 50–69; PULSE 94–104; TEMP 97.7–99.7
[2018-09-02 07:18] LABS: MEAN CELL VOLUME 91 fl (80.0-100.0); MEAN CORPUSCULAR HGB CONC 32 g/dl (33.0-37.0); MEAN PLATELET VOLUME 10.6 fl (7.4-10.4); PLATELET COUNT 473 K/mm3 (130-400); RED BLOOD COUNT 3.07 M/mm3 (4.10-5.30); REDCELL DISTRIBUTION WIDTH-CV 15.7 % (11.5-14.5)
[2018-09-02 07:25] LABS: HEMATOCRIT 27.9 % (37.0-47.0); HEMOGLOBIN 8.8 g/dl (12.5-16.0); MEAN CORPUSCULAR HEMOGLOBIN 29 pg (27.0-31.0)
[2018-09-02 07:32] LABS: BILIRUBIN,TOTAL 0.4 mg/dL (0.0-1.0); CALCIUM 7.8 mg/dL (8.4-10.2); CREATININE, serum 0.43 mg/dL (0.52-1.25); MAGNESIUM 2.3 mg/dL (1.6-2.3); POTASSIUM 3.9 mmol/L (3.4-5.0); TOTAL PROTEIN 4.9 gm/dL (6.4-8.2)
[2018-09-02 07:42] LABS: BAND 15 % (0-10); HYPOCHROMIA 1+; LYMPHOCYTE 3 % (20.0-51.0); NEUTROPHILS 81 % (42.0-75.2); PLATELET ESTIMATE INCREASED (NORMAL); STOMATOCYTE 1+
[2018-09-03] VITALS (10 sets, daily range): BP systolic 99–126; BP diastolic 56–65; PULSE 87–108; TEMP 97.4–98.4
[2018-09-03 08:23] LABS: MEAN CELL VOLUME 93 fl (80.0-100.0); MEAN CORPUSCULAR HGB CONC 31 g/dl (33.0-37.0); MEAN PLATELET VOLUME 10.5 fl (7.4-10.4); PLATELET COUNT 538 K/mm3 (130-400); RED BLOOD COUNT 2.72 M/mm3 (4.10-5.30); REDCELL DISTRIBUTION WIDTH-CV 15.6 % (11.5-14.5)
[2018-09-03 08:24] LABS: HEMATOCRIT 25.3 % (37.0-47.0); HEMOGLOBIN 7.8 g/dl (12.5-16.0); MEAN CORPUSCULAR HEMOGLOBIN 29 pg (27.0-31.0)
[2018-09-03 08:46] LABS: ALBUMIN 1.9 gm/dL (3.5-5.0); BILIRUBIN,TOTAL 0.2 mg/dL (0.0-1.0); CALCIUM 7.8 mg/dL (8.4-10.2); CREATININE, serum 0.4 mg/dL (0.52-1.25); POTASSIUM 3.7 mmol/L (3.4-5.0); TOTAL PROTEIN 4.8 gm/dL (6.4-8.2)
[2018-09-03 08:47] LABS: MAGNESIUM 2.3 mg/dL (1.6-2.3); PHOSPHOROUS 3.4 mg/dL (2.5-4.5)
[2018-09-03 08:53] LABS: PRE ALBUMIN 5.9 mg/dL (17.6-36.0)
[2018-09-03 09:00] LABS: BAND 11 % (0-10); LYMPHOCYTE 4 % (20.0-51.0); NEUTROPHILS 83 % (42.0-75.2); PLATELET ESTIMATE INCREASED (NORMAL)
[2018-09-03 09:02] LABS: HYPOCHROMIA 1+
[2018-09-03 14:37] LABS: HEMOGLOBIN 8.2 g/dl (12.5-16.0)
[2018-09-04] VITALS (9 sets, daily range): BP systolic 105–126; BP diastolic 56–85; PULSE 74–110; TEMP 97.1–98.5
[2018-09-05] VITALS (9 sets, daily range): BP systolic 102–132; BP diastolic 52–85; PULSE 74–109; TEMP 97.6–98.4
[2018-09-05 06:21] LABS: MEAN CELL VOLUME 91 fl (80.0-100.0); MEAN CORPUSCULAR HGB CONC 32 g/dl (33.0-37.0); MEAN PLATELET VOLUME 9.8 fl (7.4-10.4); PLATELET COUNT 537 K/mm3 (130-400); REDCELL DISTRIBUTION WIDTH-CV 15.6 % (11.5-14.5)
[2018-09-05 06:34] LABS: ALBUMIN 2.1 gm/dL (3.5-5.0); BILIRUBIN,TOTAL 0.2 mg/dL (0.0-1.0); CALCIUM 7.9 mg/dL (8.4-10.2); CREATININE, serum 0.38 mg/dL (0.52-1.25); MAGNESIUM 2.1 mg/dL (1.6-2.3); PHOSPHOROUS 3.9 mg/dL (2.5-4.5); POTASSIUM 4.1 mmol/L (3.4-5.0); TOTAL PROTEIN 5.2 gm/dL (6.4-8.2)
[2018-09-05 06:36] LABS: HEMATOCRIT 23.7 % (37.0-47.0); HEMOGLOBIN 7.5 g/dl (12.5-16.0); MEAN CORPUSCULAR HEMOGLOBIN 29 pg (27.0-31.0)
[2018-09-05 07:23] LABS: BAND 25 % (0-10); LYMPHOCYTE 12 % (20.0-51.0); METAMYELOCYTE 1 % (0-0); MYELOCYTE 1 % (0-0); NEUTROPHILS 53 % (42.0-75.2); PLATELET ESTIMATE INCREASED (NORMAL)
[2018-09-06 00:36] VITALS: BP 119/60; PULSE 109; TEMP 98.2
[2018-09-06 04:22] VITALS: BP 104/55; PULSE 108; TEMP 98
[2018-09-06 06:02] LABS: MEAN CELL VOLUME 92 fl (80.0-100.0); MEAN CORPUSCULAR HGB CONC 30 g/dl (33.0-37.0); MEAN PLATELET VOLUME 9.8 fl (7.4-10.4); PLATELET COUNT 550 K/mm3 (130-400); REDCELL DISTRIBUTION WIDTH-CV 15.9 % (11.5-14.5)
[2018-09-06 06:21] LABS: CALCIUM 7.9 mg/dL (8.4-10.2); CREATININE, serum 0.38 mg/dL (0.52-1.25); MAGNESIUM 2.1 mg/dL (1.6-2.3); POTASSIUM 4.4 mmol/L (3.4-5.0)
[2018-09-06 06:22] LABS: HEMOGLOBIN 7.3 g/dl (12.5-16.0); MEAN CORPUSCULAR HEMOGLOBIN 28 pg (27.0-31.0)
[2018-09-06 07:58] LABS: BAND 19 % (0-10); EOSINOPHIL 1 % (0-4); LYMPHOCYTE 6 % (20.0-51.0); METAMYELOCYTE 2 % (0-0); MYELOCYTE 1 % (0-0); NEUTROPHILS 67 % (42.0-75.2); PLATELET ESTIMATE INCREASED (NORMAL); TOXIC GRANULATION PRESENT
[2018-09-06 07:59] LABS: ANISOCYTOSIS 1+; HYPOCHROMIA 1+
[2018-09-06 08:41] VITALS: BP 110/59; PULSE 98; TEMP 97.4
[2018-09-06 12:16] VITALS: BP 100/58; PULSE 98; TEMP 97.4
[2018-09-06 16:53] VITALS: BP 102/71; PULSE 93; TEMP 97.4
[2018-09-06 20:34] VITALS: BP 102/47; PULSE 95; TEMP 97.6
[2018-09-07] VITALS (7 sets, daily range): BP systolic 92–153; BP diastolic 52–68; PULSE 74–115; TEMP 97.6–98.9
[2018-09-07 06:25] LABS: MEAN CELL VOLUME 93 fl (80.0-100.0); MEAN CORPUSCULAR HGB CONC 30 g/dl (33.0-37.0); MEAN PLATELET VOLUME 9.9 fl (7.4-10.4); PLATELET COUNT 538 K/mm3 (130-400); RED BLOOD COUNT 2.47 M/mm3 (4.10-5.30); REDCELL DISTRIBUTION WIDTH-CV 15.9 % (11.5-14.5)
[2018-09-07 06:34] LABS: CALCIUM 7.8 mg/dL (8.4-10.2); CREATININE, serum 0.42 mg/dL (0.52-1.25); POTASSIUM 4.4 mmol/L (3.4-5.0)
[2018-09-07 06:40] LABS: MEAN CORPUSCULAR HEMOGLOBIN 28 pg (27.0-31.0)
[2018-09-07 07:54] LABS: ANISOCYTOSIS 1+; BAND 32 % (0-10); HYPOCHROMIA 3+; LYMPHOCYTE 8 % (20.0-51.0); MYELOCYTE 2 % (0-0); NEUTROPHILS 55 % (42.0-75.2); PLATELET ESTIMATE INCREASED (NORMAL)
[2018-09-08] VITALS (9 sets, daily range): BP systolic 97–119; BP diastolic 53–78; PULSE 75–113; TEMP 97.5–98.9
[2018-09-08 06:17] LABS: MEAN CELL VOLUME 94 fl (80.0-100.0); MEAN CORPUSCULAR HGB CONC 30 g/dl (33.0-37.0); MEAN PLATELET VOLUME 9.8 fl (7.4-10.4); PLATELET COUNT 536 K/mm3 (130-400); REDCELL DISTRIBUTION WIDTH-CV 15.9 % (11.5-14.5)
[2018-09-08 06:18] LABS: HEMATOCRIT 22.6 % (37.0-47.0); MEAN CORPUSCULAR HEMOGLOBIN 28 pg (27.0-31.0)
[2018-09-08 06:20] LABS: HEMOGLOBIN 6.8 g/dl (12.5-16.0)
[2018-09-08 07:09] LABS: BAND 31 % (0-10); EOSINOPHIL 1 % (0-4); HYPOCHROMIA 2+; LYMPHOCYTE 7 % (20.0-51.0); MYELOCYTE 1 % (0-0); NEUTROPHILS 58 % (42.0-75.2); PLATELET ESTIMATE INCREASED (NORMAL)
[2018-09-08 09:13] LABS: CALCIUM 7.9 mg/dL (8.4-10.2); CREATININE, serum 0.34 mg/dL (0.52-1.25); POTASSIUM 4.8 mmol/L (3.4-5.0)
[2018-09-08 10:23] LABS: MAGNESIUM 1.9 mg/dL (1.6-2.3); PHOSPHOROUS 3.3 mg/dL (2.5-4.5)
[2018-09-08 15:22] LABS: HEMATOCRIT 25.3 % (37.0-47.0); HEMOGLOBIN 7.9 g/dl (12.5-16.0)
[2018-09-09 00:16] VITALS: BP 115/75; PULSE 97; TEMP 98.7
[2018-09-09 04:29] VITALS: BP 117/62; PULSE 90; TEMP 98
[2018-09-09 08:22] VITALS: BP 105/65; PULSE 105; TEMP 97.8
[2018-09-09 08:46] LABS: MEAN CELL VOLUME 93 fl (80.0-100.0); MEAN CORPUSCULAR HGB CONC 31 g/dl (33.0-37.0); MEAN PLATELET VOLUME 9.7 fl (7.4-10.4); PLATELET COUNT 471 K/mm3 (130-400); RED BLOOD COUNT 2.67 M/mm3 (4.10-5.30); REDCELL DISTRIBUTION WIDTH-CV 15.6 % (11.5-14.5)
[2018-09-09 08:53] LABS: HEMATOCRIT 24.8 % (37.0-47.0); HEMOGLOBIN 7.6 g/dl (12.5-16.0); MEAN CORPUSCULAR HEMOGLOBIN 28 pg (27.0-31.0)
[2018-09-09 08:59] LABS: ALANINE AMINOTRANSFERASE 40 U/L (9-52); ALBUMIN 2.3 gm/dL (3.5-5.0); ALKALINE PHOSPHATASE 176 U/L (50-136); ANION GAP 0 mmol/L (7-16); AST,SGOT 41 U/L (15-37); BILIRUBIN,TOTAL < 0.1 mg/dL (0.0-1.0); BLOOD UREA NITROGEN 23 mg/dL (7-17); CALCIUM 7.9 mg/dL (8.4-10.2); CARBON DIOXIDE 39 mmol/L (22-30); CHLORIDE 98 mmol/L (98-107); CREATININE, serum 0.33 mg/dL (0.52-1.25); GLUCOSE 137 mg/dL (74-106); POTASSIUM 4.3 mmol/L (3.4-5.0); SODIUM 137 mmol/L (137-145); TOTAL PROTEIN 5.4 gm/dL (6.4-8.2)
[2018-09-09 09:29] LABS: BAND 13 % (0-10); EOSINOPHIL 1 % (0-4); LYMPHOCYTE 3 % (20.0-51.0); MYELOCYTE 1 % (0-0); NEUTROPHILS 82 % (42.0-75.2)
[2018-09-09 09:30] VITALS: BP 105/65; PULSE 105; TEMP 97.8
[2018-09-09 09:30] LABS: HYPOCHROMIA 2+; PLATELET ESTIMATE INCREASED (NORMAL)
[2018-09-09 09:48] LABS: POLYCHROMASIA 1+
[2018-09-09 09:49] LABS: TARGET CELLS 1+; TOXIC GRANULATION PRESENT
== END 2018-09-09 10:50 | disposition short-term general hospital (02) | DRG 326 ==
LOC: COL.ER 12:09 → SURG 13:09 → ICU 13:09 → SURG 09-01 15:48
PROVIDERS: Anesthesiology Critical Care Medicine; Family Medicine; Hospitalist; Internal Medicine; Internal Medicine Critical Care Medicine; Internal Medicine Pulmonary Disease; Nurse Practitioner Family; Physician Assistant; Registered Nurse; Surgery
PROC: 02HV33Z Insertion of Infusion Device into Superior Vena Cava, Percutaneous Approach (ICD-10-PCS; 2018-08-04)
PROC: 0DQB0ZZ Repair Ileum, Open Approach (ICD-10-PCS; principal; 2018-08-08 08:30)
PROC: 0WJG4ZZ Inspection of Peritoneal Cavity, Percutaneous Endoscopic Approach (ICD-10-PCS; 2018-08-21 14:00)
PROC: 0W9B3ZZ Drainage of Left Pleural Cavity, Percutaneous Approach (ICD-10-PCS; 2018-08-27)
PROC: 0DTF0ZZ Resection of Right Large Intestine, Open Approach (ICD-10-PCS; 2018-08-28)
PROC: 0D1B0Z4 Bypass Ileum to Cutaneous, Open Approach (ICD-10-PCS; 2018-08-28)
PROC: 0DH60UZ Insertion of Feeding Device into Stomach, Open Approach (ICD-10-PCS; 2018-08-28 15:00)
PROC: 0W9G3ZZ Drainage of Peritoneal Cavity, Percutaneous Approach (ICD-10-PCS; 2018-09-02)
DX: K94.19 Other complications of enterostomy (principal); R65.21 Severe sepsis with septic shock; A41.9 Sepsis, unspecified organism; K65.1 Peritoneal abscess; E87.1 Hypo-osmolality and hyponatremia; E87.2 Acidosis; K56.51 Intestinal adhesions [bands], with partial obstruction; E46 Unspecified protein-calorie malnutrition; B37.0 Candidal stomatitis; N17.9 Acute kidney failure, unspecified; J90 Pleural effusion, not elsewhere classified; Y83.8 Other surgical procedures as the cause of abnormal reaction of the patient, or of later complication, without mention of misadventure at the time of the procedure; Z87.891 Personal history of nicotine dependence; E87.6 Hypokalemia; Z85.41 Personal history of malignant neoplasm of cervix uteri; I10 Essential (primary) hypertension; R00.0 Tachycardia, unspecified; I95.1 Orthostatic hypotension; E83.42 Hypomagnesemia; Y83.2 Surgical operation with anastomosis, bypass or graft as the cause of abnormal reaction of the patient, or of later complication, without mention of misadventure at the time of the procedure; E87.70 Fluid overload, unspecified
CPT/HCPCS: 99223; 99231-AI; 99232-AI; 99233-AI; A4216; A4217; A4314; C1751; C1765; C1894; C9113; J0171; J0330; J0610; J0690; J0744; J1100; J1120; J1170; J1200; J1450; J1650; J1720; J1815; J1885; J1940; J2185; J2250; J2270; J2370; J2405; J2543; J2550; J2704; J2710; J2765; J3010; J3370; J3411; J3475; J3480; J7030; J7050; J7060; J7120; J7131; P9016; P9047; Q9967